=== PATIENT | male | born 1940 | race Caucasian/White ===

== ENCOUNTER 2016-08-18 18:08 | Inpatient (IN) | payer MEDICARE, BC ==
[2016-08-18] MEDS ORDERED: Aspirin Low Dose CHEW TAB* 81 MG PO ONE (18:26)
[2016-08-18 18:44] LABS: Hematocrit 46 % (42-52); Hemoglobin 15.2 g/dl (14.0-18.0); Mean Corpuscular HGB Conc 33 g/dl (31-36); Mean Corpuscular Hemoglobin 30 pg (27-31); Mean Corpuscular Volume 89 fL (80-94); Mean Platelet Volume 9 um3 (7.4-10.4); Red Blood Count 5.16 10^6/ul (4.0-5.4); Red Cell Distribution Width 14 % (10.5-15); White Blood Count 6.7 10^3/ul (3.5-10.8)
--- NOTE | 2016-08-18 18:45 | RAD ---
INDICATION: Chest pain COMPARISON: None TECHNIQUE: An AP portable view obtained at 1840 hours is submitted. FINDINGS: Bones/Soft Tissues: There are no acute bony findings. Cardiomediastinal: The cardiomediastinal silhouette is normal. Lungs: There are no infiltrates. Pleura: There are no pleural effusions. Other: None IMPRESSION: NO ACTIVE DISEASE
[2016-08-18 19:04] LABS: Albumin 4.2 g/dL (3.2-5.2); BUN/Creatinine Ratio 16.2 (8-20); Calcium 9.5 mg/dL (8.6-10.3); EGFR African American 88.8 (>60); Globulin 2.9 g/dL (2-4); Magnesium 2.6 mg/dL (1.9-2.7); Potassium 3.8 mmol/L (3.5-5.0); Total Bilirubin 0.4 mg/dL (0.2-1.0); Total Protein 7.1 g/dL (6.4-8.9)
[2016-08-18 19:09] LABS: Troponin I 0.07 ng/mL (<0.04)
[2016-08-18] MEDS ORDERED: Iohexol 350* (CONTRAST) 500 ML MDV IV ONE (19:09)
[2016-08-18 19:22] LABS: TSH (Thyroid Stimulating Horm) 2.29 mcIU/mL (0.34-5.60)
--- NOTE | 2016-08-18 19:53 | RAD ---
INDICATION: Chest pain. Short of breath. Evaluate for pulmonary embolus. COMPARISON: Chest x-ray August 18, 2016 TECHNIQUE: Axial source images were obtained from the thoracic inlet to the hemidiaphragms following administration of [address] angiographic technique was utilized. Coronal and sagittal reconstructed images were acquired. CHEST FINDINGS: Neck/thyroid: The visualized neck to include the thyroid appear normal. Chest wall: There are no acute abnormalities of the bony thorax or chest wall. There is no supraclavicular, infraclavicular, or axillary lymphadenopathy. Lungs : There are no pulmonary parenchymal masses or infiltrates. The pulmonary interstitium appears normal. There are no endobronchial lesions. Cardiomediastinal structures: There are fourth order and distal acute pulmonary emboli supplying the right lower lobe. No other pulmonary arterial filling defects are identified. The heart is normal in size. There is no pericardial effusion. There is no evidence of aortic aneurysm or dissection. There is no mediastinal or hilar adenopathy. The esophagus appears normal. Pleura : There are no pleural-based masses or effusions. Other: None. IMPRESSION: ACUTE, RIGHT-SIDED PULMONARY EMBOLI. Findings called to emergency department.
[2016-08-18] MEDS ORDERED: Enoxaparin(*) 80 MG/0.8 ML SYR SUBCUT ONE (20:00)
--- NOTE | 2016-08-18 20:36 | ED ---
Shivam Patterson Billy, scribed for Zack Calabrese MD on 08/18/16 at 1822 . HPI Chest Pain - HPI Summary HPI Summary: Patient is a 76 year-old male coming to [facility] presenting with constant left anterior chest pain starting earlier today. He describes burning sensation which was worse with exertion, 5/10 at its worst, 2/10 at this time. Pain radiated to his shoulder and back, but he also states that his left shoulder pain has been chronic. He reports mild nausea without vomiting. Denies any SOB or dizziness. - History of Current Complaint Chief Complaint: EDChestPainROMI Time Seen by Provider: 08/18/16 18:16 Hx Obtained From: Patient Onset/Duration: Started Hours Ago, Still Present Timing: Constant Initial Severity: Moderate Current Severity: Moderate Pain Intensity: 2 Pain Scale Used: 0-10 Numeric Chest Pain Location: Left Anterior Chest Pain Radiates: Yes Chest Pain Radiates To:: Back, Shoulder Character: Burning Aggravating Factor(s): Exertion Alleviating Factor(s): Nothing Associated Signs and Symptoms: Positive: Chest Pain, Nausea. Negative: Shortness of Breath, Vomiting - Allergy/Home Medications Allergies/Adverse Reactions: Allergies Allergy/AdvReac Type Severity Reaction Status Date / Time No Known Allergies Allergy Verified 08/18/16 18:17 PMH/Surg Hx/FS Hx/Imm Hx Endocrine/Hematology History: Denies: Hx Diabetes - pre-diabetes Cardiovascular History: Denies: Hx Hypercholesterolemia, Hx Hypertension Infectious Disease History: No Infectious Disease History: Denies: Traveled Outside the [place] in Last 30 Days - Family History Known Family History: Positive: Cardiac Disease - mother with HI in her 70s - Social History Alcohol Use: None Hx Substance Use: No Substance Use Type: Reports: None Hx Tobacco Use: No Smoking Status (MU): Never Smoked Tobacco Review of Systems Positive: Chest Pain Negative: Shortness Of Breath Positive: Nausea. Negative: Vomiting Positive: Other - chronic left shoulder pain All Other Systems Reviewed And Are Negative: Yes Physical Exam - Summary Physical Exam Summary: VITAL SIGNS: Reviewed. GENERAL: Patient is a well developed and nourished male who is lying comfortable in the stretcher. Patient is not in any acute respiratory distress. HEAD AND FACE: No signs of trauma. No ecchymosis, hematomas or skull depressions. No sinus tenderness. EYES: PERRLA, EOMI x 2, No injected conjunctiva, no nystagmus. EARS: Hearing grossly intact. Ear canals and tympanic membranes are within normal limits. MOUTH: Oropharynx within normal limits. NECK: Supple, trachea is midline, no adenopathy, no JVD, no carotid bruit, no c- spine tenderness, neck with full ROM. CHEST: Symmetric, no tenderness at palpation LUNGS: Clear to auscultation bilaterally. No wheezing or crackles. CVS: Regular rate and rhythm, S1 and S2 present, no murmurs or gallops appreciated. ABDOMEN: Soft, non-tender. No signs of distention. No rebound no guarding, and no masses palpated. Bowel sounds are normal. EXTREMITIES: FROM in all major joints, no edema, no cyanosis or clubbing. NEURO: Alert and oriented x 3. No acute neurological deficits. Speech is normal and follows commands. SKIN: Dry and warm Triage Information Reviewed: Yes Vital Signs On Initial Exam: Initial Vitals Temp Pulse Resp BP Pulse Ox 97.2 F 89 14 160/70 100 08/18/16 18:13 08/18/16 18:13 08/18/16 18:13 08/18/16 18:13 08/18/16 18:13 Vital Signs Reviewed: Yes Diagnostics - Vital Signs Vital Signs Temp Pulse Resp BP Pulse Ox 08/18/16 18:13 97.2 F 89 14 160/70 100 - Laboratory Lab Results: Lab Results 08/18/16 08/18/16 08/18/16 Range/Units 18:50 18:50 18:50 WBC 6.7 (3.5-10.8) 10^3/ul RBC 5.16 (4.0-5.4) 10^6/ul Hgb 15.2 (14.0-18.0) g/dl Hct 46 (42-52) % MCV 89 (80-94) fL MCH 30 (27-31) pg MCHC 33 (31-36) g/dl RDW 14 (10.5-15) % Plt Count 239 (150-450) 10^3/ul MPV 9 (7.4-10.4) um3 Neut % (Auto) 75.5 (38-83) % Lymph % (Auto) 14.1 L (25-47) % [place] % (Auto) 6.9 (1-9) % Eos % (Auto) 2.4 (0-6) % Baso % (Auto) 1.1 (0-2) % Absolute Neuts (auto) 5.0 (1.5-7.7) 10^3/ul Absolute Lymphs (auto) 0.9 L (1.0-4.8) 10^3/ul Absolute Monos (auto) 0.5 (0-0.8) 10^3/ul Absolute Eos (auto) 0.2 (0-0.6) 10^3/ul Absolute Basos (auto) 0.1 (0-0.2) 10^3/ul Absolute Nucleated RBC 0 10^3/ul Nucleated RBC % 0.1 D-Dimer, Quantitative 489 H (Less Than 230) ng/mL Lactic Acid 1.2 (0.5-2.0) mmol/L Result Diagrams: 08/18/16 18:50 08/18/16 18:50 Lab Statement: Any lab studies that have been ordered have been reviewed, and results considered in the medical decision making process. - Radiology CXR Xray Interpretation: No Acute Changes Radiology Interpretation Completed By: Radiologist - CT CTA chest CT Interpretation Completed By: Radiologist - ACUTE, RIGHT-SIDED PULMONARY EMBOLI. - EKG 1815 EKG Interpretation: NSR 83 bpm, no ST elevation, ST depressions in V4-V6. Re-Evaluation - Re-Evaluation First Eval Re-Evaluation Time: 19:23 Change: Unchanged Second Eval Re-Evaluation Time: 19:30 Change: Unchanged Comment: Plan for admission reviewed and discussed. Chest Pain Course/Dx - Course Assessment/Plan: Patient is a 76 year-old male coming to [facility] presenting with constant left anterior chest pain starting earlier today. He describes burning sensation which was worse with exertion, 5/10 at its worst, 2/10 at this time. Pain radiated to his shoulder and back, but he also states that his left shoulder pain has been chronic. He reports mild nausea without vomiting. Denies any SOB or dizziness. Bloodwork WNL except for D-Dimer of 489 and troponin of 0.07. CXR shows no acute pathology. In the ER course, he was given aspirin due to increased troponin. EKG shows NSR [address] depressions in V4-V6. Because of the increased D-Dimer, I decided to order CTA chest which shows right -sided PE. Therefore he was placed on Lovenox. At this point, I discussd the case with Dr. Rucker who will be admitting the patient to his services for further workup and management. He is hemodynamically stable, A&Ox3. - Chest Pain Differential Diagnosis/HQI/PQRI: Acute HI, ACS, Angina, CHF, Chest Wall, GI Disease, Pulmonary Edema, Pulmonary Embolism - Diagnoses Provider Diagnoses: Pulmonary embolism, increased troponin r/o ACS, Chest pain - Provider Notifications Discussed Care Of Patient With: Dr. Rucker (hospitalist) @ 1929: accepts admission. Discharge - Discharge Plan Condition: Stable Disposition: ADMITTED TO [facility] Referrals: Valentino Byrd MD [Primary Care Provider] - The documentation as recorded by the Shivam emmanuel Billy accurately reflects the service I personally performed and the decisions made by me, Zack Calabrese MD.
[2016-08-19] MEDS: Enoxaparin(*) 80 MG/0.8 ML SYR SUBCUT SCH ×4 (00:16→19:30)
[2016-08-19 02:18] LABS: Urine Bilirubin Negative (Negative); Urine Glucose Negative (Negative); Urine Nitrite Negative (Negative)
[2016-08-19 08:40] LABS: Troponin I 0.35 ng/mL (<0.04)
--- NOTE | 2016-08-19 13:15 | HP ---
HISTORY AND PHYSICAL: DATE OF ADMISSION: 08/18/16 CHIEF COMPLAINT: Chest pain. HISTORY OF PRESENT ILLNESS: The patient is a 76-year-old gentleman, who presents to the [facility] with a chief complaint of pain that started yesterday around his entire chest. It is on the left and the right side. He feels a fatigue, as he puts it, in his shoulders. Initially, it did not hurt on exertion, but today, it got worse on exertion. At its worst, it was 5/10 in severity. He did not get short of breath with it. He says when the pain gets worse with exertion he stops, and in a few seconds, it is better again. He denies any recent long plane rides or car rides or trauma. He denies any swelling or pain in his calf. PAST MEDICAL HISTORY: Significant for cellulitis he had 15 years ago, prostate cancer apparently several years ago but then a repeat biopsy showed it was negative and he was never treated, BPH. MEDICATIONS: 1. Vitamin C 250 mg a day. 2. Prostate [id number] medication. 3. Multivitamin. 4. Garlic. ALLERGIES: He has allergy to AVOCADOS, but no medications. FAMILY HISTORY: Mother at 78 and had an WA in her 70s and some form of cancer. Father at 78 of pulmonary embolism. SOCIAL HISTORY: No tobacco, alcohol, or recreational drug use. 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 He is with no children. His , Renae Smith, is his healthcare proxy. REVIEW OF SYSTEMS: A 14-point review of systems is completed with the patient. All pertinent positives and negatives are in the history of present illness, otherwise, negative. PHYSICAL EXAMINATION GENERAL: A pleasant gentleman lying in bed in no acute distress. VITAL SIGNS: Temperature 98.1 degrees, heart rate 82 beats per minute, respiratory rate 16 breaths per minute, pulse ox 97%, blood pressure 150/71. HEENT: Normocephalic, atraumatic. Pupils are equal, round, and reactive to light. Moist mucous membranes. NECK: Supple. No JVD, bruits, palpable thyroid, or lymphadenopathy. LUNGS: Clear to auscultation and percussion bilaterally. HEART: S1, S2 appreciated. Regular rate and rhythm. No murmurs, gallops, or rubs. ABDOMEN: Positive bowel sounds in all 4 quadrants. Soft, nontender, nondistended. No hepatosplenomegaly. EXTREMITIES: No cyanosis, clubbing, or edema. +2 peripheral pulses bilaterally. NEUROLOGIC: Alert and oriented x3, moves all extremities. SKIN: No rashes or abnormalities. DIAGNOSTIC STUDIES/LAB DATA: White count 6.7, hemoglobin 15.2, hematocrit 46, platelets 239. Sodium is 140, potassium 3.8, chloride 106, BUN 17, creatinine 1.05, glucose 107. Troponin 0.07, 0.19, repeated 0.25. D-dimer 49. Urinalysis is unremarkable. CTA of the chest shows acute right sided pulmonary emboli. Chest x-ray shows no active disease. EKG shows normal sinus rhythm at 83 beats per minute, normal axis, no acute ST- T wave changes. ASSESSMENT AND PLAN: 1. Pulmonary embolism. Start the patient on Lovenox subcu. He will consider whether to go on Coumadin or Xarelto, but he is leaning towards Xarelto. The patient currently feels fine and would like to go home as soon as possible. I will get a venous duplex and transthoracic echocardiogram and monitor him on tele overnight. If he feels as well tomorrow, he will be able to go home at that point. 2. Fluids, electrolytes, nutrition. Regular diet. 3. Deep venous thrombosis prophylaxis. He is on Lovenox. 4. The patient is a full code. TIME SPENT: Over 75 minutes were spent on this H and P; more than 40 minutes of which were spent in direct bngq-kc-wajv contact with the patient in evaluation, physical exam, counselling, and coordination of care. CC: Dr. Valentino Byrd* [id number]/[facility] #: [id number] ELEANOR
--- NOTE | 2016-08-19 15:33 | PN ---
Subjective Date of Service: 08/19/16 Interval History: HOSPITALIST PROGRESS NOTE Patient seen and examined at bedside. He feels better today, has not experienced chest pain so far today, but has not exerted himself. Family History: Unchanged from Admission Social History: Unchanged from Admission Past Medical History: Unchanged from Admission Objective Active Medications: Enoxaparin Sodium (Lovenox(*)) 80 mg SUBCUT Q12H KAVEH Last Admin: 08/19/16 08:25 Dose: 80 mg Vital Signs 08/19/16 08/19/16 08:38 11:38 Temperature 98.5 F Pulse Rate 63 Respiratory 12 16 Rate Blood Pressure 137/71 (mmHg) O2 Sat by Pulse 96 Oximetry Oxygen Devices in Use Now: None Appearance: Pleasant gentleman lying in bed in NAD. Eyes: No Scleral Icterus Ears/Nose/Mouth/Throat: Mucous Membranes Moist Neck: Trachea Midline Respiratory: Symmetrical Chest Expansion and Respiratory Effort, Clear to Auscultation Cardiovascular: NL Sounds; No Murmurs; No JVD, RRR Abdominal: NL Sounds; No Tenderness; No Distention Extremities: No Edema Neurological: Alert and Oriented x 3, NL Muscle Strength and Tone Lines/Tubes/Other Access: Clean, Dry and Intact Peripheral IV Nutrition: Taking PO's Result Diagrams: 08/18/16 18:50 08/18/16 18:50 Assess/Plan/Problems-Billing Assessment: Mr. Smith is a 76yo M with PMH of BPH who presented to ED with c/o chest pain, found to have PE. - Patient Problems (1) Pulmonary embolism Comment: - Patient denies any recent surgeries or trips. - Father of PE after a hospital stay, but no other family members with h/o blood clots. - Continue Lovenox for now. Patient will decide between Warfarin or NOAC. - Awaiting echocardiogram and LE doppler. (2) Elevated troponin Comment: - Suspect secondary to increased demand in the setting of PE. - Continue to trend. - His VS are stable, he does not require supplemental O2 - no indication for thrombolytic at this time. (3) DVT prophylaxis Comment: - Lovenox. (4) Full code status Status and Disposition: Inpatient for management of PE.
--- NOTE | 2016-08-19 16:21 | ECHO ---
Patient: ANDREW HAYWOOD [facility] Rec#: [id number] : 1940 Date: 08/19/2016 Age: 76y Height: 182.9 cm / 72.0 in Weight: 82.6 kg / 182.1 lbs Sex: M BSA: 2.1 Room#: 433 Admit Date#: 08/18/2016 Type: Inpatient Referring: Emma Molina MD Reading: Ina Swift MD Dehairing Machine Tender: Nadine Solorzano RN RDCS CC: Valentino Byrd MD Transthoracic Echocardiogram Indication: Pulmonary embolism, elevated troponin levels BP: 126/70 HR: 85 Rhythm: NSR Findings History: Palpitations in the past, PACs seen on Holter monitor per patient Technical Comments: The study is technically limited due to poor acoustic windows. Left Ventricle: The left ventricular chamber size is normal. There is no left ventricular hypertrophy. Global left ventricular wall motion and contractility are within normal limits. There is normal left ventricular systolic function. The estimated ejection fraction is 60-65%. There is no consistent Doppler evidence of clinically significant diastolic dysfunction. Left Atrium: The left atrial chamber size is normal. Right Ventricle: The right ventricle is not well visualized. The right ventricle is mildly dilated. The right ventricular global systolic function is low normal. Right Atrium: The right atrium is not well visualized. Aortic Valve: The aortic valve is trileaflet. There is no evidence of aortic regurgitation. There is no evidence of aortic stenosis. Mitral Valve: The mitral valve leaflets are mildly thickened. There is a trace of mitral regurgitation. There is no evidence of mitral stenosis. Tricuspid Valve: The tricuspid valve structure is not well visualized. There is trace tricuspid regurgitation. Unable to estimate the right ventricular systolic pressure. Pulmonic Valve: The pulmonic valve structure is not well visualized. There is a trace pulmonic regurgitation. Pericardium: There is no significant pericardial effusion. Aorta: There is no dilatation of the ascending aorta. There is no dilatation of the aortic arch. The aortic root is normal in size. Pulmonary Artery: The main pulmonary artery is not well visualized. Venous: The venous system is not well visualized. The inferior vena cava is not visualized. Conclusions Global left ventricular wall motion and contractility are within normal limits, LV appear hyperdynamic. The estimated ejection fraction is 65%. The right ventricle is mildly dilated. The right ventricular systolic function is low normal. There is a trace of mitral regurgitation. There is trace tricuspid regurgitation. Unable to estimate the right ventricular systolic pressure. No prior echo to compare. Measurements Name Value Normal Range RVDdMajor (2D) 4 cm (2.2 - 4.4) RAd ISD 4CH 3.8 cm (3.4 - 4.9) IVSd (2D) 0.9 cm (0.6 - 1) LVPWd (2D) 0.9 cm (0.6 - 1) LVIDd (2D) 4.2 cm (3.6 - 5.4) LVIDs (2D) 2.8 cm - LV FS (2D) 36 % (25 - 45) Aortic Annulus 2.3 cm (1.4 - 2.6) Ao root diameter (2D) 3.3 cm (2.1 - 3.5) Ascending Ao 3.3 cm (2.1 - 3.4) Aortic arch 2.4 cm (1.8 - 3.4) LA dimension (AP) 2D 2.8 cm (2.3 - 3.8) LAd ISD 4CH 4.1 cm (2.9 - 5.3) LA ISD 4CH W 3.9 cm (2.5 - 4.5) Name Value Normal Range MV E-wave Vmax 0.92 m/sec - MV deceleration time 224 msec - MV A-wave Vmax 0.76 m/sec - MV E:A ratio 1.2 ratio - LV septal e' Vmax 0.08 m/sec - LV lateral e' Vmax 0.13 m/sec - LV E:e' septal ratio 11.5 ratio - LV E:e' lateral ratio 7.1 ratio - Name Value Normal Range AV Vmax 1.5 m/sec - LVOT Vmax 1.2 m/sec - LEATHA Vmax 0.93 m/sec - Name Value Normal Range PV Vmax 0.93 m/sec -
--- NOTE | 2016-08-19 20:56 | RAD ---
INDICATION: Pain and swelling. COMPARISON: None TECHNIQUE: Duplex interrogation of the Lowerextremity was performed. FINDINGS: Deep veins: The common femoral, great saphenous, profunda femoris, proximal, mid, and distal deep femoral, popliteal, posterior tibial, and peroneal veins were interrogated. There is deep venous thrombosis in a single posterior tibial and peroneal vein on the right and there is chronic appearing DVT in one of the left peroneal veins. There is otherwise normal compressibility, augmentation, and phasic flow. Superficial veins: There are no findings of superficial thrombophlebitis. Popliteal fossa:There is no evidence of a popliteal cyst. Soft tissues:There are no soft tissue abnormalities. IMPRESSION: ACUTE BELOW THE KNEE DEEP VENOUS THROMBOSIS (TIBIAL INVOLVEMENT).
--- NOTE | 2016-08-19 20:57 | RAD ---
INDICATION: Left flank pain COMPARISON: None TECHNIQUE: Longitudinal and transverse scans of the kidneys were obtained. FINDINGS: Kidneys: The kidneys are normal in size and echogenicity. No renal masses, calculi, or hydronephrosis is seen. The right kidney measures 10.3 x 5.0 x 5.6 cm and the left kidney 9.3 x 5.3 x 4.7 cm. Other: None IMPRESSION: NORMAL EXAMINATION.
[2016-08-20 08:10] LABS: HDL Cholesterol 40.2 mg/dL
[2016-08-20] MEDS: Enoxaparin(*) 80 MG/0.8 ML SYR SUBCUT SCH (08:43)
[2016-08-20 09:05] VITALS: BP 122/61
--- NOTE | 2016-08-21 00:20 | DS ---
DISCHARGE SUMMARY: DATE OF ADMISSION: 08/18/16 DATE OF DISCHARGE: 08/20/16 PRIMARY CARE PROVIDER: Valentino Bryd MD DISCHARGE DIAGNOSES: 1. Pulmonary embolism. 2. Lower extremity deep vein thrombosis. 3. Elevated troponin. 4. Mild right ventricular strain. PAST MEDICAL HISTORY: BPH. MEDICATION LIST: Eliquis 10 mg p.o. b.i.d. for 7 days, then 5 mg p.o. b.i.d. HOSPITAL COURSE: Mr. Smith is a 76-year-old male with a past medical history as stated above that presented to the emergency room with complaints of retrosternal chest pain associated with exertion. Two days prior to this episode, he had 1 episode of right calf pain that he describes as a cramp. The patient was admitted for further workup. His chest x-ray showed no active disease. CTA of the chest showed there are fourth-order in distal acute pulmonary emboli supplying the right lower lobe. No other pulmonary arterial filling defects were identified. His initial troponin was 0.07 and he was initially treated with Lovenox. His troponin continued to trend up and peaked at 0.41. An echocardiogram was performed and it showed global left ventricular wall motion contractility within normal limits. LV appears hyperdynamic. Ejection fraction of 65%. The right ventricle is mildly dilated and the right ventricular systolic function is low normal. There was trace of MR, trace TR, and the estimator printing plate making was unable to estimate the right ventricular systolic pressure. Lower extremity Doppler showed DVT in a single posterior tibial and peroneal vein on the right and there is a chronic appearing DVT in 1 of the left peroneal veins. I had multiple long conversations with the patient and his regarding his diagnosis and test results. We also talked about the options for anticoagulation including Lovenox, warfarin, Xarelto, and Eliquis. The patient works with [employer] and was very interested in studies and risks, benefits, and alternatives of all medications. After we reviewed them at length, the patient elected to be treated with Eliquis. He had significant improvement of his symptoms and was felt to be stable for discharge at this time. His chest pain has resolved. He requires no supplemental oxygen. His troponin is trending down. On admission, the patient also had complaints of left flank pain and a renal ultrasound was performed and it was a normal examination. The patient's father of a pulmonary embolism and considering that he has chronic DVT of unknown duration. Now this episode of right lower extremity DVT and PE with mild right ventricular strain, I am inclined to indicate lifelong therapy. The patient is open to the idea, but he would like to discuss with his primary care provider if maybe just treating for 6 months would be indicated and then to have close followup. I believe he also needs a repeat echocardiogram in 6 to 8 weeks to reassess his right ventricle function but overall I believe the patient carries a good prognosis for recovery. The patient also had complaints of what he describes as "shoulder fatigue." He says for years he has had this episodes where he feels like he exercised his shoulders too much and this episode actually started in the similar manner, but then was followed by chest pain and that is what prompted his ED visit. With the way he describes the symptoms, I question if he may have mild case of polymyalgia rheumatica, but I will defer the workup to his primary care provider. I did call Dr. Byrd's office today but he is on vacation at this time. I did relay the information about the admission to his nurse (Flaca) especially the fact the patient will need a followup echocardiogram in 6 to 8 weeks. The patient was felt to be medically stable for discharge at this time. PHYSICAL EXAMINATION: General: The patient is a pleasant, elderly male, who is sitting up in bed, in no acute distress. Vital Signs: Temperature 98.3, heart rate is 69, respiratory rate 16, oxygen saturation 98% on room air, and blood pressure 122/61. Chest: Breath sounds bilaterally with no added sounds. CVS: Normal S1, S2. Regular rate and rhythm. Abdomen: Soft. Bowel sounds presents. Extremities: No edema. No calf tenderness. Neuro: He is alert, awake, and oriented x3. Able to move all 4 extremities. DIET: Regular diet. ACTIVITIES: As tolerated. DISPOSITION: To home. STATUS WHILE IN THE HOSPITAL: Inpatient. If you need more information, please feel free to call me at or please obtain the full medical records. TIME SPENT: Approximately 45 minutes was spent to complete this discharge. CC: Dr. Byrd* [id number]/[facility] #: [id number] MTDD
== END 2016-08-20 12:15 | disposition home or self-care (01) | DRG 176 ==
LOC: ED 18:08 → MEDTELE 22:05
PROVIDERS: ADMIT Internal Medicine; ATTEND Internal Medicine
DX: I26.99 Other pulmonary embolism without acute cor pulmonale (principal); I82.442 Acute embolism and thrombosis of left tibial vein; I82.5Z2 Chronic embolism and thrombosis of unspecified deep veins of left distal lower extremity; R74.8 Abnormal levels of other serum enzymes; N40.0 Benign prostatic hyperplasia without lower urinary tract symptoms; Z85.46 Personal history of malignant neoplasm of prostate; Z79.899 Other long term (current) drug therapy; Z91.018 Allergy to other foods; Z82.49 Family history of ischemic heart disease and other diseases of the circulatory system; Z80.9 Family history of malignant neoplasm, unspecified
CPT/HCPCS: 36415; 71010; 71275; 76775; 80053; 80061; 81003; 82550; 82553; 82947; 83605; 83735; 83874; 83880; 84443; 84484; 85025; 85379; 93005; 93306; 93970; A9270-GY; J1650; Q9967

== ENCOUNTER 2016-12-23 20:12 | Emergency (ER) | payer MEDICARE, BC ==
[2016-12-23 20:52] LABS: Hematocrit 43 % (42-52); Hemoglobin 14.3 g/dl (14.0-18.0); Mean Corpuscular HGB Conc 33 g/dl (31-36); Mean Corpuscular Hemoglobin 30 pg (27-31); Mean Corpuscular Volume 89 fL (80-94); Mean Platelet Volume 9 um3 (7.4-10.4); Red Blood Count 4.81 10^6/ul (4.0-5.4); Red Cell Distribution Width 13 % (10.5-15); White Blood Count 9.2 10^3/ul (3.5-10.8)
[2016-12-23 20:59] VITALS: BP 150/82
[2016-12-23 21:06] LABS: Albumin 3.8 g/dL (3.2-5.2); BUN/Creatinine Ratio 17.8 (8-20); C Reactive Protein 68.26 mg/L (< 5.00); Calcium 9.1 mg/dL (8.6-10.3); EGFR African American 92.9 (>60); EGFR Non-African American 72.2 (>60); Globulin 3.1 g/dL (2-4); Potassium 4.1 mmol/L (3.5-5.0); Total Bilirubin 0.6 mg/dL (0.2-1.0); Total Protein 6.9 g/dL (6.4-8.9)
--- NOTE | 2016-12-23 21:07 | ED ---
Lower Extremity - HPI Summary HPI Summary: Patient presents with continued and what he feels is increased redness on his right inner calf. He first noticed a red dot on his left 2 days ago - History of Current Complaint Chief Complaint: EDRashSkinAbscess Stated Complaint: SKIN INFECTION SPREADING Time Seen by Provider: 12/23/16 20:22 Hx Obtained From: Patient Mechanism Of Injury: Unknown Onset of Pain: Days Onset/Duration: Worse Since - yesterday Severity Initially: Mild Severity Currently: Moderate Timing: Constant Location: Is Discrete @ - right calf Character Of Pain: Aching Aggravating Factor(s): Nothing, Other Alleviating Factor(s): Rest Able to Bear Weight: Yes - Allergies/Home Medications Allergies/Adverse Reactions: Allergies Allergy/AdvReac Type Severity Reaction Status Date / Time Avocado Allergy See Comment Verified 08/18/16 22:58 PMH/Surg Hx/FS Hx/Imm Hx Endocrine/Hematology History: Denies: Hx Diabetes - pre-diabetes Cardiovascular History: Denies: Hx Hypercholesterolemia, Hx Hypertension History: Reports: Hx Benign Prostatic Hyperplasia Sensory History: Reports: Hx Contacts or Glasses Opthamlomology History: Reports: Hx Contacts or Glasses - Surgical History Surgery Procedure, Year, and Place: APPENDECTOMY. TONSILLECTOMY. biospy of prostate Infectious Disease History: No Infectious Disease History: Denies: Traveled Outside the [place] in Last 30 Days - Family History Known Family History: Positive: Cardiac Disease - mother with CA in her 70s - Social History Occupation: Retired Lives: Alone Alcohol Use: None Hx Substance Use: No Substance Use Type: Reports: None Hx Tobacco Use: No Smoking Status (MU): Never Smoked Tobacco Review of Systems Negative: Fever, Chills Negative: Decreased ROM, Edema Positive: Other - erythema Negative: Weakness, Paresthesia, Numbness All Other Systems Reviewed And Are Negative: Yes Physical Exam Triage Information Reviewed: Yes Vital Signs On Initial Exam: Initial Vitals Temp Pulse Resp BP Pulse Ox 99.2 F 106 20 169/75 100 12/23/16 20:15 12/23/16 20:15 12/23/16 20:15 12/23/16 20:15 12/23/16 20:15 Vital Signs Reviewed: Yes Appearance: Positive: Well-Appearing, No Pain Distress, Well-Nourished Skin: Positive: Warm, Skin Color Reflects Adequate Perfusion, Dry, Soft, Erythema @ - 5cm area of erythema on medial mid marcus that has progressed 1-2 cm outside of demarcation from yesterday. Head/Face: Positive: Normal Head/Face Inspection Eyes: Positive: EOMI, ELZBIETA, Conjunctiva Clear ENT: Positive: Hearing grossly normal Respiratory/Lung Sounds: Positive: Breath Sounds Present Cardiovascular: Positive: RRR Musculoskeletal: Positive: Strength/ROM Intact Neurological: Positive: Sensory/Motor Intact, Alert, Oriented to Person Place, Time, NV Bundle Intact Distally, Normal Gait Psychiatric: Positive: Affect/Mood Appropriate AVPU Assessment: Alert - [place] Coma Scale Coma Scale Total: 15 Diagnostics - Vital Signs Vital Signs Temp Pulse Resp BP Pulse Ox 12/23/16 20:59 93 95 12/23/16 20:38 99 95 12/23/16 20:36 150/82 12/23/16 20:15 99.2 F 106 20 169/75 100 - Laboratory Lab Results: Lab Results 12/23/16 Range/Units 20:45 WBC 9.2 (3.5-10.8) 10^3/ul RBC 4.81 (4.0-5.4) 10^6/ul Hgb 14.3 (14.0-18.0) g/dl Hct 43 (42-52) % MCV 89 (80-94) fL MCH 30 (27-31) pg MCHC 33 (31-36) g/dl RDW 13 (10.5-15) % Plt Count 205 (150-450) 10^3/ul MPV 9 (7.4-10.4) um3 Neut % (Auto) 76.6 (38-83) % Lymph % (Auto) 11.7 L (25-47) % [place] % (Auto) 10.1 H (1-9) % Eos % (Auto) 1.1 (0-6) % Baso % (Auto) 0.5 (0-2) % Absolute Neuts (auto) 7.1 (1.5-7.7) 10^3/ul Absolute Lymphs (auto) 1.1 (1.0-4.8) 10^3/ul Absolute Monos (auto) 0.9 H (0-0.8) 10^3/ul Absolute Eos (auto) 0.1 (0-0.6) 10^3/ul Absolute Basos (auto) 0 (0-0.2) 10^3/ul Absolute Nucleated RBC 0 10^3/ul Nucleated RBC % 0 Result Diagrams: 12/23/16 20:45 Lab Statement: Any lab studies that have been ordered have been reviewed, and results considered in the medical decision making process. Lower Extremity Course/Dx - Diagnoses Differential Diagnosis/HQI/PQRI: Positive: Arthritis, Bursitis, Cellulitis, Contusion, Osteomyelitis, Sprain, Strain Provider Diagnoses: Cellulitis Discharge - Discharge Plan Condition: Stable Disposition: HOME Prescriptions: Clindamycin Cap(NF) [Cleocin 300 mg Cap(NF)] 300 mg PO QID #39 cap Patient Education Materials: Cellulitis (ED) Referrals: Valentino Byrd MD [Primary Care Provider] - Additional Instructions: Please stop taking the Doxycycline and begin using Clindamycin. Follow-up with your primary care provider in 1-2 days for re-evaluation. Return to the emergency department if symptoms worsen.
[2016-12-23] MEDS ORDERED: Clindamycin CAP* 150 MG PO ONE ×2 (21:18→22:00)
[2016-12-23] MEDS ORDERED: Clindamycin CAP* 150 MG ONE (21:51)
== END 2016-12-23 22:13 | disposition home or self-care (01) ==
LOC: ED 20:12
DX: L03.115 Cellulitis of right lower limb (principal); N40.0 Benign prostatic hyperplasia without lower urinary tract symptoms
CPT/HCPCS: 36415; 80053; 85025; 86140; 99282; A9270-GY

== ENCOUNTER 2017-08-28 07:58 | Day surgery (SDC) | payer MEDICARE, BC ==
[~2017-08-28 07:58] MED LIST: Acetaminophen TAB* 325 MG PO PRN; Buffered Lidocaine 0.9% SYRIN* 5 ML/SYR SYRINGE INTRADERM ONE; Cyclopentolate 1% OPTH.SOL* 2 ML BTL ONE; Ketorolac 0.5% OPHTH (NF) 0.5 % 5 ML BTL ONE; Lidocaine 1% MPF* 2 ML VIAL ONE; Lidocaine 2% EPI 1:200000 MPF* 20 ML VIAL ONE; Midazolam* 1 MG/ML 2 ML VIAL (2 MG) ONE; Neomycin/Polymy/Dex OPTH.SUSP* MAXITROL 0.1% 5 ML ONE; Phenylephrine 2.5% OPTH.SOL* 2 ML BTL ONE; Povidone Iodine 5% OPTH* 30 ML BTL ONE; Proparacaine 0.5% OPHTH.SOL* 15 ML BTL ONE; Trypan Blue 0.06% SOL* 0.5 ML BTL ONE; acetaZOLAMIDE TAB* 250 MG ONE
[2017-08-28 10:33] VITALS: BP 152/63
--- NOTE | 2017-08-28 13:03 | OP ---
DATE OF OPERATION: 08/28/2017 - [facility] DATE OF : 1940. SURGEON: Valentino Low M.D. PREOPERATIVE DIAGNOSIS: Cataract left eye. POSTOPERATIVE DIAGNOSIS: Cataract left eye. OPERATIVE PROCEDURE: Extracapsular cataract extraction with intraocular lens implant left eye. DESCRIPTION OF PROCEDURE: The patient was brought to the operating room after being given 1/2% Alcaine with epinephrine drops in the preoperative area. The eye was prepped and draped in the usual sterile fashion. Sterile drape and eyelid speculum were placed. Again, topical 1/2% Alcaine with epinephrine was given. A paracentesis incision was made at the 3 o'clock position with the No.75 blade. Clear cornea incision 2.2 x 2.2-mm was created at the 6 o'clock position starting at the anterior limbus using the 2.2-mm keratome. The anterior chamber was irrigated with 0.4 mL of 1% non-preservative intracameral lidocaine and filled with DisCoVisc. A capsulorrhexis was completed using the cystotome and the Utrata forceps. Hydrodissection was performed with balanced salt solution. The lens nucleus was removed with the Phacoemulsification handpiece without incident. Cortex was removed with the irrigation-aspiration handpiece. The capsular bag was re-inflated using DisCoVisc and an [id number] implant was inserted with the shooter. VisionBlue was used to stain the anterior capsule prior to capsulorrhexis. The irrigation- aspiration handpiece was used to remove all residual DisCoVisc. The eye was refilled with balanced salt solution and the wound checked and found to be watertight. Topical Maxitrol drops were given. Indication for complex cataract surgery: White cataract requiring capsular stain. [id number]/[facility] #: [id number] MTDD
== END 2017-08-28 10:21 | disposition home or self-care (01) ==
LOC: OREAST 07:58
PROVIDERS: ATTEND Specialist
DX: H25.812 Combined forms of age-related cataract, left eye (principal); Z86.718 Personal history of other venous thrombosis and embolism; Z79.01 Long term (current) use of anticoagulants; I26.99 Other pulmonary embolism without acute cor pulmonale; I49.1 Atrial premature depolarization
CPT/HCPCS: A9270-GY; J2250; V2632

== ENCOUNTER 2018-04-02 10:40 | Day surgery (SDC) | payer MEDICARE, BC ==
[~2018-04-02 10:40] MED LIST changes: -Lidocaine 1% MPF* 2 ML VIAL ONE; +Lidocaine 1%* 5 ML VIAL ONE; -Lidocaine 2% EPI 1:200000 MPF* 20 ML VIAL ONE; +Lidocaine 2% EPI 1:200000 MPF*10-20 ML VIAL ONE; -Midazolam* 1 MG/ML 2 ML VIAL (2 MG) ONE; -Trypan Blue 0.06% SOL* 0.5 ML BTL ONE
[2018-04-02 14:07] VITALS: BP 135/78
--- NOTE | 2018-04-02 15:22 | OP ---
DATE OF OPERATION: 04/02/2018 - [facility] DATE OF : 1940. SURGEON: Valentino Low M.D. PREOPERATIVE DIAGNOSIS: Cataract right eye. POSTOPERATIVE DIAGNOSIS: Cataract right eye. OPERATIVE PROCEDURE: Extracapsular cataract extraction with intraocular lens implant right eye. DESCRIPTION OF PROCEDURE: The patient was brought to the operating room after being given 1/2% Alcaine with epinephrine drops in the preoperative area. The eye was prepped and draped in the usual sterile fashion. Sterile drape and eyelid speculum were placed. Again, topical 1/2% Alcaine with epinephrine was given. A paracentesis incision was made at the 9 o'clock position with the No.75 blade. Clear cornea incision 2.2 x 2.2-mm was created at the 12 o'clock position starting at the anterior limbus using the 2.2-mm keratome. The anterior chamber was irrigated with 0.4 mL of 1% non-preservative intracameral lidocaine and filled with DisCoVisc. A capsulorrhexis was completed using the cystotome and the Utrata forceps. Hydrodissection was performed with balanced salt solution. The lens nucleus was removed with the Phacoemulsification handpiece without incident. Cortex was removed with the irrigation-aspiration handpiece. The capsular bag was re-inflated using DisCoVisc and an [id number] implant was inserted with the shooter. The irrigation-aspiration handpiece was used to remove all residual DisCoVisc. The eye was refilled with balanced salt solution and the wound checked and found to be watertight. Topical Maxitrol drops were given. [id number]/[facility] #: [id number] [facility]
== END 2018-04-02 13:46 | disposition home or self-care (01) ==
LOC: OREAST 10:40
PROVIDERS: ATTEND Specialist
DX: H25.811 Combined forms of age-related cataract, right eye (principal); Z86.718 Personal history of other venous thrombosis and embolism; Z79.01 Long term (current) use of anticoagulants
CPT/HCPCS: A9270-GY; V2632

== ENCOUNTER 2019-02-11 14:19 | Inpatient (IN) | payer MEDICARE, BC ==
[2019-02-11 14:38] LABS: ABS Lymphocytes 0.7 10^3/ul (1.0-4.8); ABS Monocytes 0.3 10^3/ul (0-0.8); Eosinophil % 0.6 %; Hematocrit 44 % (42-52); Hemoglobin 14.6 g/dL (14.0-18.0); Lymphocyte % 13.6 %; Mean Corpuscular HGB Conc 33 g/dL (31-36); Mean Corpuscular Hemoglobin 30 pg (27-31); Mean Corpuscular Volume 90 fL (80-94); Mean Platelet Volume 8.4 fL (7.4-10.4); Nucleated Red Blood Cells % 0.1; Platelet Count 226 10^3/uL (150-450); Red Cell Distribution Width 14 % (10-15); White Blood Count 5.1 10^3/uL (3.5-10.8)
[2019-02-11 14:44] LABS: INR 1.15 (0.82-1.09)
--- NOTE | 2019-02-11 14:47 | ED ---
Shortness of Breath - HPI Summary HPI Summary: A 78 y/o male presents to [facility] with a chief complaint of SOB. He says that he has been having SOB since his pulmonary embolism 2.5 years ago, but for the last month it has worsened. At triage he rated his pain as a 0/10 in severity. He had a nuclear stress test done and was referred to the ED because Dr. Cardenas called his PCP, Dr. Byrd, and Dr. Byrd called the patient. He claims that he has a FHx of GA at 67 y/o. He says that he had CP and SOB today during the stress test. Exertion aggravates his pain. He says that he has been doing hour long walks with his dog. - History of Current Complaint Chief Complaint: EDShortnessOfBreath Hx Obtained From: Patient Onset/Duration: Gradual Onset, Lasting Weeks, Still Present Timing: Constant Current Severity: Mild Dyspnea At: Exertion Aggravating Factors: Other - exertion Alleviating Factors: Nothing Associated Signs & Symptoms: Chest Pain Unrelated to Cough - Allergy/Home Medications Allergies/Adverse Reactions: Allergies Allergy/AdvReac Type Severity Reaction Status Date / Time No Known Drug Allergies Allergy See Comment Verified 02/11/19 18:48 avocado AdvReac Severe See Comment Verified 02/11/19 14:27 PMH/Surg Hx/FS Hx/Imm Hx Endocrine/Hematology History: Denies: Hx Bone Marrow Disease, Hx Diabetes, Hx Sickle Cell Disease, Hx Anemia Cardiovascular History: Reports: Hx Angina Denies: Hx Coronary Artery Disease, Hx Hypercholesterolemia, Hx Hypertension , Hx Myocardial Infarction, Hx Pacemaker/ICD, Hx Valvular Heart Disease Respiratory History: Reports: Hx Pulmonary Embolism - 08/2016 from blood clot in leg Denies: Hx Asthma, Hx Chronic Obstructive Pulmonary Disease (COPD) - hx PE 2016 History: Reports: Hx Benign Prostatic Hyperplasia, Other Problems/ Disorders - hx of prostate biopsy 11/10, enlarged prostate Denies: Hx Chronic Renal Failure, Hx Renal Disease Sensory History: Reports: Hx Cataracts - right eye, Hx Contacts or Glasses - reading glasses Denies: Hx Hearing Aid Opthamlomology History: Reports: Hx Cataracts - right eye, Hx Contacts or Glasses - reading glasses Neurological History: Reports: Hx Migraine - occasional ocular migraine- appox 3 x per year - Surgical History Surgery Procedure, Year, and Place: TONSILLECTOMY 1952 [facility]. APPENDECTOMY 1970 [place], [place]. BIOPSY OF PROSTATE 2007 [facility]. CATARACT LEFT EYE Hx Anesthesia Reactions: No Infectious Disease History: No Infectious Disease History: Denies: Traveled Outside the US in Last 30 Days - Family History Known Family History: Positive: Cardiac Disease - mother with GA in her 70s - Social History Alcohol Use: None Hx Substance Use: No Substance Use Type: Reports: None Hx Tobacco Use: No Smoking Status (MU): Never Smoked Tobacco Have You Smoked in the Last Year: No Review of Systems Negative: Fever, Chills Negative: Erythema Negative: Sore Throat Positive: Chest Pain Positive: Shortness Of Breath. Negative: Cough Negative: Abdominal Pain, Vomiting, Nausea Negative: dysuria, hematuria Negative: Myalgia, Edema Negative: Rash Neurological: Negative - dizziness All Other Systems Reviewed And Are Negative: Yes Physical Exam - Summary Physical Exam Summary: Constitutional: Well-developed, Well-nourished, Alert. (-) Distressed Skin: Warm, Dry HENT: Normocephalic; Atraumatic Eyes: Conjunctiva normal Neck: Musculoskeletal ROM normal neck. (-) JVD, (-) Stridor, (-) Tracheal deviation Cardio: Rhythm regular, rate normal, Heart sounds normal; Intact distal pulses; The pedal pulses are 2+ and symmetric. Radial pulses are 2+ and symmetric. (-) Murmur Pulmonary/Chest wall: Effort normal. (-) Respiratory distress, (-) Wheezes, (-) Rales Abd: Soft, (-) tenderness, (-) Distension, (-) Guarding, (-) Rebound Musculoskeletal: (-) Edema Lymph: (-) Cervical adenopathy Neuro: Alert, Oriented x3 Psych: Mood and affect Normal Triage Information Reviewed: Yes Vital Signs On Initial Exam: Initial Vitals Temp Pulse Resp BP Pulse Ox 98.7 F 89 18 154/82 98 02/11/19 14:25 02/11/19 14:25 02/11/19 14:25 02/11/19 14:25 02/11/19 14:25 Vital Signs Reviewed: Yes Diagnostics - Vital Signs Vital Signs Temp Pulse Resp BP Pulse Ox 02/11/19 14:25 98.7 F 89 18 154/82 98 - Laboratory Lab Results: Lab Results 02/11/19 Range/Units 14:31 WBC 5.1 (3.5-10.8) 10^3/uL RBC 4.90 (4.18-5.48) 10^6 /uL Hgb 14.6 (14.0-18.0) g/dL Hct 44 (42-52) % MCV 90 (80-94) fL MCH 30 (27-31) pg MCHC 33 (31-36) g/dL RDW 14 (10-15) % Plt Count 226 (150-450) 10^3/uL MPV 8.4 (7.4-10.4) fL Neut % (Auto) 78.9 % Lymph % (Auto) 13.6 % [place] % (Auto) 6.4 % Eos % (Auto) 0.6 % Baso % (Auto) 0.5 % Absolute Neuts (auto) 4.0 (1.5-7.7) 10^3/ul Absolute Lymphs (auto) 0.7 L (1.0-4.8) 10^3/ul Absolute Monos (auto) 0.3 (0-0.8) 10^3/ul Absolute Eos (auto) 0.0 (0-0.6) 10^3/ul Absolute Basos (auto) 0.0 (0-0.2) 10^3/ul Absolute Nucleated RBC 0.0 10^3/ul Nucleated RBC % 0.1 Result Diagrams: 19 14:31 19 20:18 Lab Statement: Any lab studies that have been ordered have been reviewed, and results considered in the medical decision making process. - EKG 14:25 Cardiac Rate: NL - 86 bpm EKG Rhythm: Sinus Rhythm Summary of EKG Findings: EKG at 14:25 showed normal sinus rhythm at 86 bpm, no STEMI. Course/Dx - Course Course Of Treatment: A 78 y/o male presents to [facility] with a chief complaint of SOB. He says that he has been having SOB since his pulmonary embolism 2.5 years ago, but for the last month it has worsened. At triage he rated his pain as a 0/ 10 in severity. He had a nuclear stress test done and was referred to the ED because Dr. Cardenas called his PCP, Dr. Samuels, and Dr. Samuels called the patient. He claims that he has a FHx of GA at 67 y/o. He says that he had CP and SOB today during the stress test. Exertion aggravates his pain. He says that he has been doing hour long walks with his dog. The physical exam was unremarkable. EKG at 14:25 showed normal sinus rhythm at 86 bpm, no STEMI. Discussed case with Dr. Byrd, who recommended observation or admission to obtain cardiac catheter tomorrow. Discussed case with Dr. Ramirez, hospitalist, who accepted the patient for admission. The patient is agreeable with this plan. - Diagnoses Provider Diagnoses: Abnormal stress test, Stable angina - Physician Notifications Discussed Care of Patient With: Frederic Levine Time Discussed With Above Provider: 14:55 Instructed by Provider To: Other - is aware of the patient, will proceed with cardiac consult. angina seems to be stable, there seems to be no change in symptomolgy. Discharge - Sign-Out/Discharge Documenting (check all that apply): Patient Departure - admit All imaging exams completed and their final reports reviewed: Yes Patient Received Moderate/Deep Sedation with Procedure: No - Discharge Plan Condition: Fair Disposition: ADMITTED TO [facility] - Attestation Statements Document Initiated by Scribe: Yes Documenting Scribe: Eddy Eubanks Provider For Whom Scribe is Documenting (Include Credential): Raymundo Shaver MD Scribe Attestation: I, Eddy Eubanks, scribed for Raymundo Shaver MD on 02/11/19 at 2138. Status of Scribe Document: Ready Consult Consult: At 17:[address] Byrd, who recommended observation or admission to obtain cardiac catheter tomorrow. At 17:[address] Ramirez, hospitalist, who accepted the patient for admission.
[2019-02-11 15:06] LABS: Albumin 4.1 g/dL (3.2-5.2); Albumin/Globulin Ratio 1.5 (1-3); BUN/Creatinine Ratio 17.5 (8-20); Calcium 9.4 mg/dL (8.6-10.3); EGFR African American 91.1 (>60); EGFR Non-African American 75.2 (>60); Globulin 2.7 g/dL (2-4); Total Bilirubin 0.7 mg/dL (0.2-1.0); Total Protein 6.8 g/dL (6.4-8.9); Troponin I 0.02 ng/mL (<0.04)
[2019-02-11] MEDS ORDERED: Acetaminophen TAB* 325 MG PO PRN (18:29)
[2019-02-11] MEDS ORDERED: Heparin DRIP 25,000 UNITS(*) 25,000 UNITS/500 ML BAG IV SCH (18:30)
[2019-02-11] MEDS ORDERED: Heparin VIAL(*) 5000 UNITS/ML VIAL (FIVE THOUSAND) IV PRN (18:50)
--- NOTE | 2019-02-11 20:08 | HP ---
CC: Dr. Valentino Byrd; Dr. Cherri Cardenas * HISTORY AND PHYSICAL: DATE OF ADMISSION: 02/11/19 PRIMARY CARE PROVIDER: Dr. Valentino Byrd. BABY REGISTRY SALES CONSULTANT: Dr. Cherri Cardenas. ATTENDING PHYSICIAN: Dr. Emma Lundy * (dictated by Mildred Garcia NP). CHIEF COMPLAINT: Positive stress test. HISTORY OF PRESENT ILLNESS: Mr. 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 The patient had a PE back in 2017 and since that time has had some shortness of breath with exertion, though notes that his shortness of breath with exertion has increased significantly in the past 5 to 6 weeks. He does typically walk his dog an hour a day and notes that now he has to stop multiple times while walking in order to catch his breath. He has no significant pain, just some discomfort related to the shortness of breath. He recently saw his primary care provider because of this and was sent for an outpatient stress test. The patient had an exercise nuclear cardiac stress test today. I will note that he was noted to have some chest pain and shortness of breath during the stress test. The results of the stress test read as "reversible hypoperfusion of the distal anterior wall extending to the apex consistent with an area of ischemia. Intermediate risk." For this reason, he was referred to the emergency room. In the emergency room, the patient is asymptomatic. He offers no complaints. He had lab work, which was unremarkable. He has had 2 negative troponins. INR is very slightly elevated at 1.15. Vitals have been stable. At this point, the patient is agreeable to coming into the hospital and the hospitalist service was asked to evaluate for admission. PAST MEDICAL HISTORY: 1. Pulmonary embolism, unprovoked, in 2017. PAST SURGICAL HISTORY: 1. Tonsillectomy and adenoidectomy. 2. Appendectomy. HOME MEDICATIONS: 1. Eliquis 5 mg p.o. b.i.d. 2. Ascorbic acid 250 mg p.o. daily. 3. Prostate 2.4 supplement 1 cap p.o. b.i.d. 4. Lactobacillus 1 cap p.o. every other day. 5. Multivitamin 1 tab p.o. daily. ALLERGIES: No known drug allergies. FAMILY HISTORY: The patient's father had a history of PE. His mother had an AR at 62 and also had thymus cancer. He had a brother with salivary gland cancer. SOCIAL HISTORY: The patient denies any tobacco, alcohol, or recreational drug use. He lives at home with his Renae, who will be his surrogate decision maker in the event he is unable to make his own decisions. REVIEW OF SYSTEMS: An 11-point review of systems was performed and all the pertinent positive and negative findings are in the HPI. All other systems are negative. PHYSICAL EXAMINATION GENERAL: Mr. Smith is a well-developed, well-nourished white male, sitting in bed, in no acute distress. He appears his stated age. VITAL SIGNS: Temp 98.7, heart rate 67, respiratory rate 14, oxygen saturation 97 % on room air, blood pressure 128/67. HEENT: Head is atraumatic, normocephalic. Visual baird are grossly intact. Pupils are equal, round, and reactive to light and accommodation. Extraocular movements intact. Hearing is grossly intact. Oral mucous membranes are moist and without lesions. NECK: Thyroid not palpable. Trachea midline. No lymphadenopathy. RESPIRATORY: Symmetrical chest expansion. No chest wall deformities. Lungs clear to auscultation throughout. No rhonchi, wheezes, or rales. CARDIOVASCULAR: Regular rate and rhythm. S1, S2 present. No murmurs, rubs, or gallops. No JVD. ABDOMEN: Soft, nontender to palpation. Bowel sounds normoactive throughout. EXTREMITIES: Skin warm and smooth bilaterally. No edema. NEURO: Awake, alert, and oriented x4. Cranial nerves II through XII grossly intact. Moves all extremities. DIAGNOSTIC STUDIES/LAB DATA: WBC 5.1, RBC 4.9, hemoglobin 14.6, hematocrit 44 , platelets 226,000. INR 1.15. Sodium 142, potassium 4.0, chloride 110, carbon dioxide 25, BUN 17, creatinine 0.97, glucose 115. First troponin 0.02, second troponin 0.03. EKG shows normal sinus rhythm with a rate of 64, QTc 403, inverted T-waves in III. ASSESSMENT AND PLAN: Mr. Smith is a 78-year-old male with past medical history of unprovoked pulmonary embolism, who presented to the emergency room today after he was noted to have a positive outpatient cardiac stress test. He will be admitted observation for: 1. Positive stress test. The patient does admit to worsening shortness of breath on exertion recently, most notably in the last 5 to 6 weeks. This sounds to be anginal equivalent. At this point, he is pain free. Again, he did have an outpatient stress test today, which showed reversible hypoperfusion of the distal anterior wall extending to the apex and was sent by Dr. Cardenas because of concern for these findings. The patient is agreeable to staying for likely cardiac catheterization tomorrow. I was in touch with Dr. Levine, who is aware of the patient's case. He requested that the patient be placed on a heparin drip and advised that he will see the patient tomorrow morning. He did note that if he does cath the patient, it would not be until late morning, so the patient could have a regular breakfast. I will repeat an EKG in the morning and he will have a third troponin at 8 p.m. 2. History of pulmonary embolism. This was unprovoked in 2017 and the patient is on lifelong anticoagulation with Eliquis. His last dose of Eliquis was at 2: 15 a.m. this morning. I will note that the patient reports he typically takes this medication at 2:00 and 2:00. We will hold the Eliquis at this point as he will be on a heparin drip. 3. FEN: The patient does not require any fluid resuscitation or electrolyte repletion at this time. Diet will be heart healthy. 4. Code status: The patient will be a full code. 5. DVT prophylaxis: According to the DVT Risk Assessment, the patient scores a 6, putting him at highest risk. Again, he will be on a heparin drip. TIME SPENT: Approximately 50 minutes were spent on this admission, greater than half of that time spent [id number] with the patient obtaining my history , performing my physical exam, and reviewing the plan of care. This case has been discussed with my attending, Dr. Lundy, who is in agreement with the plan of care. MILDRED GARCIA, BEACH EXPERT [id number]/[facility] #: [id number] [place]
[2019-02-11 21:00] LABS: EGFR African American 103.2 (>60); EGFR Non-African American 85.3 (>60)
[2019-02-12 05:39] LABS: ABS Eosinophils 0.1 10^3/ul (0-0.6); ABS Lymphocytes 0.9 10^3/ul (1.0-4.8); ABS Monocytes 0.5 10^3/ul (0-0.8); ABS Neutrophils 3.3 10^3/ul (1.5-7.7); Eosinophil % 2.5 %; Hematocrit 42 % (42-52); Hemoglobin 14.2 g/dL (14.0-18.0); Lymphocyte % 18.7 %; Mean Corpuscular HGB Conc 34 g/dL (31-36); Mean Corpuscular Hemoglobin 30 pg (27-31); Mean Corpuscular Volume 90 fL (80-94); Mean Platelet Volume 8.5 fL (7.4-10.4); Platelet Count 214 10^3/uL (150-450); Red Cell Distribution Width 14 % (10-15); White Blood Count 4.9 10^3/uL (3.5-10.8)
[2019-02-12 05:47] LABS: Activated Partial Thrombo Time 64.7 seconds (26.0-38.0); INR 1.15 (0.82-1.09)
[2019-02-12 05:54] LABS: BUN/Creatinine Ratio 15.6 (8-20); EGFR African American 92.1 (>60); EGFR Non-African American 76.2 (>60); Potassium 4.6 mmol/L (3.5-5.0)
[2019-02-12 09:31] LABS: HDL Cholesterol 39.2 mg/dL
[2019-02-12] MEDS ORDERED: Aspirin 81 mg CHEW TAB* 81 MG TAB.CHEW PO ONE (11:25)
[2019-02-12] MEDS ORDERED: NS 0.9% 1000 ML** 1,000 ML IV SCH ×2 (11:30→16:00)
[2019-02-12] MEDS ORDERED: Atorvastatin* 80 MG TAB PO ONE (11:39)
--- NOTE | 2019-02-12 12:06 | CONS ---
CONSULTATION REPORT: DATE OF CONSULT: 02/12/19 ATTENDING PHYSICIAN: Dr. Frederic Levine, Cardiology.* (DICTATED BY NATHAN ESTRADA NP) PRIMARY DATASTAGE DEVELOPER: Dr. Cardenas. PRIMARY PHYSICIAN: Dr. Byrd. REASON FOR CONSULT: Abnormal stress test 02/11/19. HISTORY OF PRESENT ILLNESS: This is a pleasant 78-year-old male patient with a notable history of hyperlipidemia, unprovoked PE, DVT in 2017, on Eliquis therapy, who presented to [facility], 02/11/19, at the discretion of his primary screen printing press operator, Dr. Cardenas, due to abnormal stress test. According to exercise nuclear stress test dictated report, the patient's exercised for 4 minutes and 6 seconds achieving 7 METs. He was able to achieve 85% of his maximum predicted heart rate. There was reproduction of chest pain rated as 5/10 during stress portion that resolved in recovery. There was occasional VPCs, no VT. There is [address] segment depression concerning for ischemia. Nuclear imaging reports LVEF 62%, TID 1.106 with reversible ischemia in the distal anterior wall extending to the apex. The patient has not had recurrent chest pain since stress test. Currently, he is asymptomatic. Last dose of Eliquis was 02/11/19 at 0200. He has been on IV heparin since. Retrospectively, he states that he has always had a component of dyspnea on exertion since his submassive pulmonary embolism in 2017. Apparently at that time, per discharge summary, the patient was having chest pain, dyspnea on exertion, and right shoulder discomfort. Troponin peaked at 0.41 at that time. Echocardiogram revealed mild RV dilatation. Unfortunately, right ventricular systolic pressure was not assessed. In the past month and half, however, he has had decreased exercise ability. Apparently, he walks his dog a mile a day and he has been having to stop 10 minutes into the walk due to this exertion with described burning chest discomfort. He denies dizziness, palpitations, sensation of heart racing. Denies resting symptoms. He also reports exertional shortness of breath with other activities that he used to be able to tolerate such as lifting a bag of recyclables. Pain is also worse with incline as his shortness of breath. Last echocardiogram according to our medical records was 08/18/16. At that time , LVEF was 60% to 65% with mild RV strain, trace mitral regurgitation, trace tricuspid regurgitation. PAST MEDICAL HISTORY: 1. Submassive PE right lobe with associated RV strain and troponinemia, August 2016. 2. Right peroneal and posterior tibialis DVT. 3. Chronic left peroneal DVT. 4. VPCs. PAST SURGICAL HISTORY: Includes: 1. Left eye cataract surgery. 2. Appendectomy. 3. Tonsil and adenoidectomy. MEDICATIONS: Home medications listed: 1. Eliquis 5 mg p.o. b.i.d. 2. Daily multivitamin. 3. Vitamin C 250 mg daily. 4. Prostate supplement. ALLERGIES: Reported avocado, which causes tingling involving the palate and GI upset. He denies allergy to contrast dye, shell fish, red dye, or aspirin. FAMILY HISTORY: Father at age 78 due to complications of pulmonary embolism. Mother at age 78 due to complications from thymus cancer. She did have myocardial infarction at age 60. Sibling history is noncontributory. SOCIAL HISTORY: The patient is . Lives at home with his . 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 He is quite active, walks a mile a day with his dog. Otherwise reports never utilizing tobacco products. Denies alcohol use or drug use. REVIEW OF SYSTEMS: All systems have been reviewed and are otherwise negative, except as mentioned above in the HPI. PHYSICAL EXAMINATION: Temperature is 97.8, pulse 59, respirations 20, oxygenation 97% on room air, blood pressure 135/66. General: The patient is alert and oriented x3, cooperative with exam, appears in no apparent distress, lying in bed upon entering the room. HEENT: Head is atraumatic, normocephalic. Oral mucosa is moist. Tongue is midline. Neck: Supple. No JVD. No carotid bruit. No thyromegaly. Cardiac: Normal S1 and S2. Regular rate and rhythm. No murmur, rub, or gallop noted. Lungs: Auscultated posteriorly. No evidence of adventitious breath sounds. /GI: Abdomen is soft, nontender, nondistended. Positive bowel sounds throughout. Extremities: No pedal edema. No clubbing. No cyanosis. Strong ulnar and radial pulses palpated bilaterally. Skin: Positive discoloration involving bilateral lower extremities concerning for venous insufficiency. DIAGNOSTIC STUDIES/LAB DATA: Blood work obtained on 02/12/19: White count 4.9 , hemoglobin 14.2, hematocrit 42, platelets 214. INR 1.15. Sodium 140, potassium 4.6, chloride 109, carbon dioxide 29, BUN 15, creatinine 0.96, glucose 105. LDL 126, HDL 39.2, total cholesterol 175, triglycerides 51. ECG 02/12/19, sinus rhythm rate 57. No ST segment elevation or depression. No T- wave abnormalities appreciated. ASSESSMENT AND PLAN: 1. CCS class 2 angina symptoms with abnormal exercise nuclear stress test with reproduction of chest pain, horizontal [address] segment depression and reversible ischemia involving the distal anterior wall extending to the apex. The patient is not on aspirin, statin, or beta-blockade therapy. LDL is 126. Given risk factors including positive family history, hyperlipidemia, and age and abnormal stress test suggestive of reversible anterior ischemia, we will proceed with cardiac catheterization. Last dose of Eliquis was at 0200 on 02/11. Procedure was reviewed with the patient including risks and benefits not limited to bleeding, infection, risks of vessel damage, dissection, possible requirement of aspirin, possible requirement of dual antiplatelet therapy, referral for bypass surgery, deployment of cardiac stent, risk of stroke, heart attack, or . The patient is agreeable to proceed with procedure. Consent will be obtained by proceduralist, Dr. Frederic Levine. Please note that post catheterization, medication regimen will need to be addressed if the patient truly has coronary artery disease. 2. History of unprovoked pulmonary embolism and DVT in August of 2016. I called Dr. Byrd's office. The patient had an incomplete thrombophilia evaluation. According to his lab staff, the patient had a negative factor V Leiden mutation. Protein C, protein S, lipids, anticoagulant, prothrombin gene mutation, antiphospholipid antibodies and antithrombin were not obtained. The patient has been off Eliquis since 0200 on 02/11/19. Thus, we will update thrombophilia evaluation. Please note that lupus anticoagulant cannot be measured at this time. Antithrombin could be lowered because the patient is on heparin therapy. We will keep this in mind when we interpret laboratory studies. We will continue IV heparin for now and we will reevaluate post catheterization given possible need for dual antiplatelet therapy. 3. History of hyperlipidemia. LDL goal if patient has coronary artery disease is less than 70. He is agreeable to starting statin therapy after cardiac catheterization. We will reevaluate. 4. History of right ventricular strain with submassive pulmonary embolism in 2017. Unfortunately, right ventricular systolic pressure was not assessed at that time. We would recommend eventual updated echocardiogram to reevaluate given pulmonary hypertension could be contributing to dyspnea on exertion. 5. Disposition, pending course. The patient is full code. Dr. Frederic Levine has personally seen and examined the patient and agrees with the above assessment and plan. Thank you for this kind consultation. We will follow closely. Any future questions or concerns, please do not hesitate to contact our service. NATHAN ESTRADA NP [id number]/[facility] #: [id number] ELEANOR
[2019-02-12] MEDS ORDERED: Heparin 2 UNITS/ML IVPREMIX* 3,000 UNIT/1,500 ML BAG IV ONE (13:01)
[2019-02-12] MEDS ORDERED: Midazolam* 1 MG/ML 5 ML VIAL (5 MG) ONE (13:01)
[2019-02-12] MEDS ORDERED: VERAPAMIL 2.5 MG/ML 2 ML VIAL ** 5 mg/2 ml ONE (13:01)
[2019-02-12] MEDS ORDERED: fentaNYL* 50 MCG/ML 2 ML VIAL (100 MCG VIAL) ONE (13:01)
[2019-02-12] MEDS ORDERED: Heparin(*) 1000 UNIT/ML 10 ML VIAL CATH LAB IV ONE (13:01)
[2019-02-12] MEDS ORDERED: nitroGLYCERIN DRIP* 25,000 MCG/250 ML BTL ONE (13:02)
[2019-02-12] MEDS ORDERED: Iohexol 350 (CONTRAST) 200 ML MDV IV ONE (13:02)
[2019-02-12] MEDS ORDERED: Lidocaine 1% INJ* 10 MG/ML 30 ML SDV ONE (13:02)
[2019-02-12] MEDS ORDERED: Nitroglycerin TAB 0.4 MG* 0.4 MG TAB SL PRN (16:01)
--- NOTE | 2019-02-12 17:22 | PN ---
Subjective Interval History: No acute events overnight. Afebrile s/p C with Dr. Levine today, no stent placed. Awaiting formal report but per patient there were either two coronary arteries that had significant stenosis or one in two places that would need multiple stents. Reportedly consult to [place] for possible bypass denies provoking factors to his PE two years ago other than a lot of sitting each day. MELÉNDEZ acclerated over last 6 weeks. Objective Active Medications: Acetaminophen (Tylenol Tab*) 650 mg PO Q4H PRN PRN Reason: Pain 1-12/12 Apixaban (Eliquis*) 5 mg PO BID [facility] Aspirin (Aspirin 81 Mg Chew Tab*) 81 mg PO DAILY [facility] Atorvastatin Calcium (Lipitor*) 80 mg PO 1700 [facility] Sodium Chloride (Ns 0.9% 1000 Ml) 1,000 mls @ 100 mls/hr IV .per rate [facility] Stop: 02/12/19 17:59 Metoprolol Tartrate (Lopressor Tab*) 25 mg PO Q6H [facility] Nitroglycerin (Nitroglycerin Tab 0.4 Mg*) 0.4 mg SL Q5M PRN PRN Reason: ANGINA Vital Signs - 8 hr 02/12/19 02/12/19 02/12/19 12:22 14:48 14:51 Temperature 98.2 F Pulse Rate 64 68 70 Respiratory 20 14 14 Rate Blood Pressure 129/68 122/74 (mmHg) O2 Sat by Pulse 96 95 95 Oximetry 02/12/19 02/12/19 02/12/19 15:00 15:06 15:15 Temperature Pulse Rate 76 77 Respiratory 15 16 Rate Blood Pressure 123/64 (mmHg) O2 Sat by Pulse 94 94 96 Oximetry 02/12/19 02/12/19 02/12/19 15:21 15:36 15:51 Temperature Pulse Rate 74 70 73 Respiratory 12 15 10 Rate Blood Pressure 124/69 121/68 111/70 (mmHg) O2 Sat by Pulse 96 96 95 Oximetry 02/12/19 02/12/19 02/12/19 16:00 16:06 16:36 Temperature Pulse Rate 65 65 63 Respiratory 15 14 13 Rate Blood Pressure 122/81 145/72 (mmHg) O2 Sat by Pulse 96 96 98 Oximetry 02/12/19 02/12/19 02/12/19 16:51 17:00 17:06 Temperature Pulse Rate 75 72 62 Respiratory 17 19 20 Rate Blood Pressure 146/81 139/74 (mmHg) O2 Sat by Pulse 97 97 98 Oximetry Oxygen Devices in Use Now: None Appearance: NAD Eyes: No Scleral Icterus Ears/Nose/Mouth/Throat: NL Teeth, Lips, Gums Neck: NL Appearance and Movements; NL JVP Respiratory: Symmetrical Chest Expansion and Respiratory Effort, Clear to Auscultation Cardiovascular: NL Sounds; No Murmurs; No JVD, RRR Abdominal: NL Sounds; No Tenderness; No Distention, No Hepatosplenomegaly Extremities: No Edema Skin: No Rash or Ulcers Neurological: Alert and Oriented x 3 Nutrition: Taking PO's Result Diagrams: 02/12/19 05:30 02/12/19 05:30 Additional Lab and Data: Laboratory Results - last 24 hr 02/12/19 02/12/19 02/12/19 05:30 05:30 05:30 WBC 4.9 RBC 4.70 Hgb 14.2 Hct 42 MCV 90 MCH 30 MCHC 34 RDW 14 Plt Count 214 MPV 8.5 Neut % (Auto) 68.0 Lymph % (Auto) 18.7 [place] % (Auto) 10.3 Eos % (Auto) 2.5 Baso % (Auto) 0.5 Absolute Neuts (auto) 3.3 Absolute Lymphs (auto) 0.9 L Absolute Monos (auto) 0.5 Absolute Eos (auto) 0.1 Absolute Basos (auto) 0.0 Absolute Nucleated RBC 0.0 Nucleated RBC % 0.0 INR (Anticoag Therapy) 1.15 H APTT 64.7 H Sodium 140 Potassium 4.6 Chloride 109 Carbon Dioxide 29 Anion Gap 2 BUN 15 Creatinine 0.96 Est GFR ( Amer) 92.1 Est GFR (Non-Af Amer) 76.2 BUN/Creatinine Ratio 15.6 Glucose 105 H Calcium 9.0 B-Natriuretic Peptide Triglycerides 51 Cholesterol 175 LDL Cholesterol 126 HDL Cholesterol 39.2 02/12/19 02/12/19 05:30 10:48 WBC RBC Hgb Hct MCV MCH MCHC RDW Plt Count MPV Neut % (Auto) Lymph % (Auto) [place] % (Auto) Eos % (Auto) Baso % (Auto) Absolute Neuts (auto) Absolute Lymphs (auto) Absolute Monos (auto) Absolute Eos (auto) Absolute Basos (auto) Absolute Nucleated RBC Nucleated RBC % INR (Anticoag Therapy) APTT 58.1 H Sodium Potassium Chloride Carbon Dioxide Anion Gap BUN Creatinine Est GFR ( Amer) Est GFR (Non-Af Amer) BUN/Creatinine Ratio Glucose Calcium B-Natriuretic Peptide 63 Triglycerides Cholesterol LDL Cholesterol HDL Cholesterol Assess/Plan/Problems-Billing Assessment: 78 yo male PMH unprovoked PE/EVT 2016 p/w worsening MELÉNDEZ, intermediate stress test. s/p [facility] 02/[address] Levine with reported 2v disease, may neen bypass. HLD. - Patient Problems (1) CAD (coronary artery disease) Current Visit: Yes Status: Acute Code(s): I25.10 - ATHSCL HEART DISEASE OF [place] CORONARY ARTERY W/O ANG PCTRS SNOMED Code(s): 86043803 Comment: BB, statin, aspirin. f/u formal [facility] report and [facility] consultation. may need bypass. (2) HLD (hyperlipidemia) Current Visit: Yes Status: Acute Code(s): E78.5 - HYPERLIPIDEMIA, UNSPECIFIED SNOMED Code(s): 38275934 Comment: atorvastatin (3) DVT prophylaxis Current Visit: No Status: Acute Code(s): YDY6452 - SNOMED Code(s): 307873086 Comment: eliquis (4) Full code status Current Visit: No Status: Acute Code(s): Z78.9 - OTHER SPECIFIED HEALTH STATUS SNOMED Code(s): 724354954 (5) Pulmonary embolism Current Visit: No Status: Acute Code(s): I26.99 - OTHER PULMONARY EMBOLISM WITHOUT ACUTE COR PULMONALE SNOMED Code(s): 65087271 Comment: - resolved, unprovoked but with paternal history. hypercoag w/u per cardiology - restarting Eliquaileen.
[2019-02-12] MEDS: Metoprolol Tartrate TAB* 25 MG PO SCH ×2 (17:36→23:13)
[2019-02-12] MEDS: Apixaban* 5 MG TAB PO SCH (20:29)
[2019-02-13] MEDS: Metoprolol Tartrate TAB* 25 MG PO SCH (05:40)
[2019-02-13] MEDS ORDERED: Aspirin 81 mg CHEW TAB* 81 MG TAB.CHEW PO SCH (09:00)
[2019-02-13] MEDS ORDERED: Metoprolol Tartrate TAB* 25 MG PO SCH (09:00)
--- NOTE | 2019-02-13 10:24 | PN ---
Subjective Date of Service: 02/13/19 - abnormal stress test, s/p [facility] Interval History: Pt had no events last night. Some episodes of bradycardia while sleeping. Pt reports ambulating in room and to bathroom w/o return of symptoms and denies any lightheadedness or dizziness. Lopressor doses were held d/t low HR. Nurse denies any issues overnight or this AM. Medications Active Medications: Acetaminophen (Tylenol Tab*) 650 mg PO Q4H PRN PRN Reason: Pain 1-12/12 Apixaban (Eliquis*) 5 mg PO BID [facility] Last Admin: 02/12/19 20:29 Dose: 5 mg Aspirin (Aspirin 81 Mg Chew Tab*) 81 mg PO DAILY [facility] Atorvastatin Calcium (Lipitor*) 80 mg PO 1700 [facility] Metoprolol Tartrate (Lopressor Tab*) 25 mg PO Q12HR [facility] Nitroglycerin (Nitroglycerin Tab 0.4 Mg*) 0.4 mg SL Q5M PRN PRN Reason: ANGINA Objective Vital Signs: Temp Pulse Resp BP Pulse Ox 97.9 F 56 16 131/69 99 02/13/19 03:58 02/13/19 03:58 02/13/19 03:58 02/13/19 03:58 02/13/19 03:58 Oxygen Devices in Use Now: None Appearance: Elderly male, reclined comfortably in bed. Alert and oriented. Pleasant and cooperative. Respiratory: Symmetrical Chest Expansion and Respiratory Effort, Clear to Auscultation Cardiovascular: NL Sounds; No Murmurs; No JVD, RRR, No Edema Extremities: No Edema Skin: - - Right radial wrist access site shows no erythema, ecchymosis, or drainage. No hematoma palpated. Non tender to palaption. Strong radial and ulnar pulse. Neurologically intact digits, motor function intact in hand. Neurological: Alert and Oriented x 3 Lines/Tubes/Other Access: Clean, Dry and Intact Peripheral IV Laboratory Results: 02/12/19 05:30 02/12/19 05:30 INR (Anticoag Therapy) 1.15 (0.82-1.09) H 02/12/19 05:30 APTT 58.1 seconds (26.0-38.0) H 02/12/19 10:48 Total Bilirubin 0.70 mg/dL (0.2-1.0) 02/11/19 14:31 AST 19 U/L (13-39) 02/11/19 14:31 ALT 18 U/L (7-52) 02/11/19 14:31 Alkaline Phosphatase 80 U/L (34-104) 02/11/19 14:31 B-Natriuretic Peptide 63 pg/mL (<=100) 02/12/19 05:30 Total Protein 6.8 g/dL (6.4-8.9) 02/11/19 14:31 Albumin 4.1 g/dL (3.2-5.2) 02/11/19 14:31 Globulin 2.7 g/dL (2-4) 02/11/19 14:31 Albumin/Globulin Ratio 1.5 (1-3) 02/11/19 14:31 Triglycerides 51 mg/dL 02/12/19 05:30 Cholesterol 175 mg/dL 02/12/19 05:30 LDL Cholesterol 126 mg/dL 02/12/19 05:30 HDL Cholesterol 39.2 mg/dL 02/12/19 05:30 02/11/19 02/11/19 02/11/19 14:31 17:46 20:18 Troponin I 0.02 0.03 0.03 Laboratory Results - last 24 hr 02/12/19 10:48 APTT 58.1 H Diagnostic Imaging: Patient Name: ANDREW HAYWOOD Medical Record#: [id number] Ordering Physician: Dorothea Cardenas MD Acct.#: [id number] : 1940 Age: 78 Sex: M Location: IMAGING Exam Date: 02/11/19 ADM Status: REG REF Order Information: NM MYOCARDIAL MULTI RESTING Accession Number: [id number] CPT: 63957 HISTORY: CHEST PAIN, UNSPECIFIED COMPARISONS: None TECHNIQUE: A 1 day stress/rest myocardial perfusion study was performed, with exercise stress. The exercise portion was performed using the Jose protocol, for a total METs of 7. The stress portion was monitored by Dr. Cardenas. Gated SPECT imaging was performed, with CT-based attenuation correction. DOSE: Stress: Technetium 99m tetrofosmin, 25.7 millicuries, injected at 10:43 AM on February 11, 2019 Rest: Technetium 99m tetrofosmin, 10.16 millicuries, injected at 9:00 AM on February 11, 2019 Pharmacologic agent: None FINDINGS: CARDIAC MONITORING: Peak heart rate of 141 bpm, 90% of predicted. [address] depression with stress. EF: 62% TID: 1.16 MOTION: Normal motion, with normal wall thickening. PERFUSION: There is photopenia involving the distal anterior wall extending to the apex that is reversible. OTHER: None IMPRESSION: REVERSIBLE HYPOPERFUSION OF THE DISTAL ANTERIOR WALL EXTENDING TO THE APEX CONSISTENT WITH AN AREA OF ISCHEMIA. ASSESSMENT: INTERMEDIATE RISK. Based on imaging criteria from ACC/AHA 2002. Guideline Update for the Management of Patient's with Chronic Stable Angina, table 23. Noninvasive Risk Stratification. <Electronically signed by Donald Schwab MD in OV> 02/11/19 120 Dictated By: Donald Schwab MD Dictated Date/Time: 02/11/191206 Transcribed Date/Time: 02/11/19 120 Copy to: This report is only to be considered final once signed by the Provider(s) as displayed in the "<Electronically Signed by >" field (s). Absence of a signature indicates the report is in a draft status and still needs to be finalized. In the event this document was created by someone other than the signing Provider, the individual initiating the document will be listed in the "Entered by:" or "Dictated by:" baird. 1 of 2 EKG Data: Telemetry reviewed. Pt in sinus rhythm. rate 60s. Relative bradycardia while asleep last night, not symptomatic. No VPCs or NSVT. ECG from 02/12/2019 reviewed: NSR, rate 64, no T wave abnormalities. Assessment/Plan 1. abnormal stress test, with complaints of decreased exercise capacity, dyspnea on exertion, chest discomfort symptomatology consistent w CCS class II angina. S/p [facility] Dr. Lazaro, revealed double vessel disease (LAD, RCA) with right to left and left to right collaterals. LVF preserved. Now on ASA 81mg qd, Lopressor 25mg bid, Lipitor 80mg qHS. Initiating Imdur 30mg qd. Right radial access site assessed and intact. No hematoma. Spoke with Dr. Levine who stated [facility] is aware of pt's case and Dr. Ricketts, [facility] will contact pt to address f/u for possible CABG evaluation v PCI. Pt to f/u on 02/18/2019 at 2:[address] Eddy Simons. Pt was educated on concerning symptoms including recurrence of CP, SOB, syncope, or resting symptoms. Pt aware he should seek immediate treatment or call 911 if these occur. Pt verbalized understanding and agreement. Pt was recommended to avoid strenuous activities that would provoke angina. 2. Newly diagnosed CAD. Pt started on ASA 81mg qd, Lopressor 25mg bid, Lipitor 80mg qHS. Initiating Imdur 30mg qd. 3. H/o unprovoked PE/DVT. Continued on Eliquis since 2017. Historically ruled out for Factor V Leiden Deficiency. Full thrombophilic panel drawn and sent. Results expected by 02/18/2019. We will f/u on labs on an OP basis. 4. H/o of HLD. LDL 126. Now on Lipitor 80mg qHS. Will need FLP/LFT in 6-8wks d/ t initiation of high intensity statin therapy. Goal LDL less than 70 d/t above # 2. 5. Disposition. Pending course. Pt full code. Discussed with Dr. Levine who agrees with the above assessment and plan. Will likely sign off case if pt tolerated Imdur. Attending: Frederic Levine
[2019-02-13] MEDS ORDERED: Isosorbide Mononitrate ER TAB* 30 MG PO SCH (11:00)
[2019-02-13 11:12] VITALS: BP 133/65
[2019-02-13] MEDS: Apixaban* 5 MG TAB PO SCH (11:13)
[2019-02-13] MEDS ORDERED: Atorvastatin* 80 MG TAB PO SCH (17:00)
[2019-02-13 18:51] LABS: Phospholipid Ab IgG < 9.4 GPL; Phospholipid Ab IgM, S < 9.4 MPL
--- NOTE | 2019-02-14 10:42 | DS ---
DISCHARGE SUMMARY: DATE OF ADMISSION: 02/11/19 DATE OF DISCHARGE: 02/13/19 ADMITTING PROVIDER: Mildred Garcia NP PRIMARY CARE PHYSICIAN: Valentino Byrd MD OUTPATIENT TOOLING SPECIALIST: Dr. Cardenas. CONSULTING GOLF SHOE SPIKE ASSEMBLER: Dr. Levine. PRINCIPAL DIAGNOSIS: Intermittently positive stress test in the setting of progressive dyspnea on exertion. CHIEF COMPLAINT: Multivessel coronary artery disease on left heart catheterization, hyperlipidemia. HISTORY OF PRESENT ILLNESS AND HOSPITAL COURSE: Hiram Smith is a 78-year- old male with past medical history of unprovoked pulmonary embolism in 2017 (on Eliquis). Please see H and P of Mildred Garcia NP, for full details, but briefly he had had progressive dyspnea on exertion that had initially improved after initial treatment for the pulmonary embolism, but had returned and gotten more significant over the last 6 plus weeks. He had an outpatient stress test which was intermittently positive, showing reversible hypoperfusion of the distal anterior wall extending to the apex consistent with areas of ischemia. He was sent by Dr. Cardenas for further evaluation and a left heart catheterization on hospital day #2 showed multivessel coronary artery disease. The official cath report is still pending dictation, but per written notes, left main was clear, LAD had severe proximal mid and distal disease, the RCA had proximal 90% lesion, severe mid lesion. There was right to left collaterals of the LAD and left to right collaterals of the posterior descending artery. EF was 60%. The patient recovered well, was not intervened , and is being referred to Dr. Rolf Philippe for further bypass evaluation in [place]. There was also an attempt to clarify his risk for further pulmonary embolism, DVT given the unprovoked nature in 2017. As he had been worked up for factor V Leiden deficiency in the past, full hypercoagulability workup was sent. He had been held off his Eliquis notably and stopped briefly off the heparin, which he had been started on, to ensure there is no interference. These results are pending, it should be followed up. He is started on new beta - sudheer, statin, aspirin, and continued on his Eliquis. Labs to follow are the prothrombin 2210 gene mutation, protein C activity and antigen, protein S activity and antigen, phospholipid antibody and cardiolipin IgG and IgM. His LDL was 126, HDL was 39, BNP was checked 63. He was also on day of discharge started on Imdur 30 mg daily. His left heart cath access was through his right radial. DISCHARGE MEDICATIONS: Include: 1. Eliquis 5 mg p.o. b.i.d. 2. Ascorbic acid 250 mg p.o. daily. 3. Aspirin 81 daily (new). 4. Atorvastatin 80 mg daily (new). 5. Prostate 2.4 capsule 1 capsule p.o. b.i.d. 6. Isosorbide mononitrate (Imdur) extended release 30 mg daily (new). 7. Probiotic daily. 8. Metoprolol tartrate 25 mg q.12 hours (new). 9. Multivitamin tab. FOLLOWUP: He was asked to call Dr. Rolf Philippe's office to help expedite evaluation for CABG. Dr. Levine was also in contact with Dr. Philippe. He should follow up with PCP, Dr. Valentino Byrd, within 7 to 10 days. He also has followup with Dr. Eddy Simons on 02/18/19 at 2:45 p.m. DISPOSITION: Home. CONDITION: Guarded. DIET: Heart healthy. TIME SPENT ON DISCHARGE: 35 minutes. [id number]/[facility] #: [id number] [facility]
[2019-02-17 17:57] LABS: Prothrombin 20210 Mutation Negative (Negative)
[2019-02-19 10:39] LABS: Prothrombin 20210 Mutation Negative (Negative)
--- NOTE | 2019-02-24 17:48 | CATH ---
CC: Dr. Byrd; Dr. Cardenas; Dr. Philippe, [facility]* CATHETERIZATION REPORT: DATE OF PROCEDURE: 02/12/19 - ROOM #447 PRIMARY CARE PHYSICIAN: Dr. Byrd. INFORMATION SECURITY OFFICER: Dr. Cardenas. PROCEDURE: Right radial artery access. DIAGNOSTIC CATHETERS: 5F TIG4, 5FR 4, 5FL 3.5, 5F pigtail. HISTORY: A 78-year-old male with moderate predictable exertional angina, stress imaging with a moderate size apical defect. His stress test was intermediate risk. PROCEDURE ACCESS: Right radial artery, sheath 6F slender. MEDICATIONS: 1. Subcu lidocaine. 2. IV Versed. 3. IV fentanyl. 4. Heparin 3000 units. 5. Verapamil 3 mg. 6. Nitroglycerin 300 mcg IA. HEMODYNAMICS: Initial AO: 135/72. LV precontrast, 133/3-18, no aortic valve gradient on pullback. ANGIOGRAPHY: Left main: The left main is large, long, has a distal inferior 20 % stenosis. LAD: The LAD is moderate to large, with heavy calcification of the LAD. After the first septal, there is an 80% to 90% stenosis, followed by a small diagonal branch. Mid LAD supplies a bifurcated [id number] diagonal, after which the LAD has 75% to 80% stenosis with some lucency, the vessel then reconstitutes , has a 50% stenosis, then wraps around the apex. Circumflex: The circumflex is nondominant. With proximal 50% stenosis, it supplies 2 moderate marginals and 2 the large posterolateral. There are left to right collaterals to the distal RCA. RCA: The RCA is dominant, moderate, has an 80% proximal stenosis, the RV free wall branch is followed by more distal 80% stenosis before the crux. There was a tubular 70% stenosis at the crux, the PDA is small, distal RCA continuation has competitive flow, maybe under-filled. LV: Wall motion is normal with prominent papillary muscles and estimated LVEF 65%. CONCLUSION: 1. Three-vessel disease. 2. Elevated LVEDP. 3. Normal LV systolic function. 4. Successful right radial artery access. 5. His films will be reviewed regarding revascularization. [id number]/[facility] #: [id number] [facility]
== END 2019-02-13 14:51 | disposition home or self-care (01) | DRG 287 ==
LOC: ED 14:19 → MEDTELE 18:21 → OBSVTOIN 02-12 11:00
PROVIDERS: ADMIT Internal Medicine; ATTEND Internal Medicine
PROC: B2151ZZ Fluoroscopy of Left Heart using Low Osmolar Contrast (ICD-10-PCS; 2019-02-12)
PROC: B2111ZZ Fluoroscopy of Multiple Coronary Arteries using Low Osmolar Contrast (ICD-10-PCS; principal; 2019-02-12 13:30)
DX: I25.118 Atherosclerotic heart disease of native coronary artery with other forms of angina pectoris (principal); E78.5 Hyperlipidemia, unspecified; G43.809 Other migraine, not intractable, without status migrainosus; H26.9 Unspecified cataract; R00.1 Bradycardia, unspecified; I08.1 Rheumatic disorders of both mitral and tricuspid valves; Z86.711 Personal history of pulmonary embolism; Z79.01 Long term (current) use of anticoagulants; Z86.718 Personal history of other venous thrombosis and embolism; Z79.82 Long term (current) use of aspirin; Z82.49 Family history of ischemic heart disease and other diseases of the circulatory system; Z83.2 Family history of diseases of the blood and blood-forming organs and certain disorders involving the immune mechanism; Z80.0 Family history of malignant neoplasm of digestive organs; Z80.8 Family history of malignant neoplasm of other organs or systems; Z91.018 Allergy to other foods; Z98.42 Cataract extraction status, left eye
CPT/HCPCS: 36415; 80048; 80053; 80061; 81240; 82565; 83880; 84484; 84520; 85025; 85302; 85303; 85306; 85610; 85730; 86147; 93005; 93458; 99284; A9270-GY; G0378; J1644; J2250; J3010

== ENCOUNTER 2019-05-21 16:44 | Emergency (ER) | payer MEDICARE, BC, OTHER ==
--- NOTE | 2019-05-21 17:21 | ED ---
Complex/Multi-Sys Presentation - HPI Summary HPI Summary: Pt is a 78 y/o M presenting to the ED for a chief complaint of generalized weakness for the last 3-4 days. Pt admits muscle aches and soreness diffuse throughout the body that worsens at night. Pt also admits fatigue and nausea. Pt had a syncopal episode while walking upstairs at his house and was found by his who called EMS. Pt does not recall having the syncopal episode. Pt denies CP, fever, cough, vomiting, or diarrhea. Pt has lost 15 pounds since February. Pt states he had a tick bite 6 days ago, but denies rash anywhere on his body. Pt had another tick bite 10 years ago that caused fatigue and muscle aches. Pt was diagnosed with cardiac disease recently and began a vegan diet since the diagnosis. Pt sees Dr. Flores who performed an angiogram and stress test for SOB. Pt denies SOB on exertion since starting medication. Pt is takes Eliquis and NTG. Pt has not yet had an influenza vaccination due to shortage. Pt has a PMHx of pulmonary embolism and HLD. Pt has a PSHx of tonsillectomy and adenoidectomy, and appendectomy. Pt denies tobacco, alcohol, or drug use. 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 Allergies noted. Medications reviewed. - History Of Current Complaint Chief Complaint: EDWeakness Time Seen by Provider: 05/21/19 16:53 Hx Obtained From: Patient Onset/Duration: Sudden Onset, Lasting Days - 3-4 days, Still Present Timing: Days - 3-4 days Severity Currently: Moderate Severity Initially: Moderate Associated Signs And Symptoms: Positive: Weakness - Generalized, Syncope, Nausea. Negative: SOB - Resolved, Cough, Chest Pain, Vomiting, Diarrhea, Fever - Allergies/Home Medications Allergies/Adverse Reactions: Allergies Allergy/AdvReac Type Severity Reaction Status Date / Time avocado AdvReac Severe See Comment Verified 02/11/19 14:27 PMH/Surg Hx/FS Hx/Imm Hx Previously Healthy: Yes Endocrine/Hematology History: Denies: Hx Bone Marrow Disease, Hx Diabetes, Hx Sickle Cell Disease, Hx Anemia Cardiovascular History: Reports: Hx Angina Denies: Hx Coronary Artery Disease, Hx Hypercholesterolemia, Hx Hypertension , Hx Myocardial Infarction, Hx Pacemaker/ICD, Hx Valvular Heart Disease Respiratory History: Reports: Hx Pulmonary Embolism - 08/2016 from blood clot in leg Denies: Hx Asthma, Hx Chronic Obstructive Pulmonary Disease (COPD) - hx PE 2016 History: Reports: Hx Benign Prostatic Hyperplasia, Other Problems/ Disorders - hx of prostate biopsy 11/10, enlarged prostate Denies: Hx Chronic Renal Failure, Hx Renal Disease Sensory History: Reports: Hx Cataracts - right eye, Hx Contacts or Glasses - reading glasses Denies: Hx Hearing Aid Opthamlomology History: Reports: Hx Cataracts - right eye, Hx Contacts or Glasses - reading glasses Neurological History: Reports: Hx Migraine - occasional ocular migraine- appox 3 x per year - Surgical History Surgical History: Yes Surgery Procedure, Year, and Place: TONSILLECTOMY 1952 [facility]. APPENDECTOMY 1970 [place], [place]. BIOPSY OF PROSTATE 2007 [facility]. CATARACT LEFT EYE Hx Anesthesia Reactions: No Infectious Disease History: No Infectious Disease History: Denies: Traveled Outside the US in Last 30 Days - Family History Known Family History: Positive: Cardiac Disease - mother with OK in her 70s - Social History Alcohol Use: None Hx Substance Use: No Substance Use Type: Reports: None Hx Tobacco Use: No Smoking Status (MU): Never Smoked Tobacco Have You Smoked in the Last Year: No Review of Systems Positive: Fatigue. Negative: Fever Negative: Chest Pain Negative: Shortness Of Breath - Resolved, Cough Positive: Nausea. Negative: Vomiting, Diarrhea Positive: Myalgia - Diffuse throughout the body Negative: Rash Positive: Weakness - Generalized, Syncope All Other Systems Reviewed And Are Negative: Yes Physical Exam - Summary Physical Exam Summary: Constitutional: Well-developed, Well-nourished, Alert. (-) Distressed Skin: Warm, Dry HENT: Normocephalic; Atraumatic Eyes: Conjunctiva normal Neck: Musculoskeletal ROM normal neck. (-) JVD, (-) Stridor, (-) Tracheal deviation Cardio: Rhythm regular, rate normal, Heart sounds normal; Intact distal pulses; Radial pulses are 2+ and symmetric. (-) Murmur Pulmonary/Chest wall: Effort normal. (-) Respiratory distress, (-) Wheezes, (-) Rales Abd: Soft, (-) tenderness, (-) Distension, (-) Guarding, (-) Rebound Musculoskeletal: (-) Edema Lymph: (-) Cervical adenopathy Neuro: Alert, Oriented x3 Psych: Mood and affect Normal Triage Information Reviewed: Yes Vital Signs On Initial Exam: Initial Vitals Pulse Resp BP Pulse Ox 57 12 110/55 94 05/21/19 16:48 05/21/19 16:48 05/21/19 16:48 05/21/19 16:48 Vital Signs Reviewed: Yes Procedures - Sedation Patient Received Moderate/Deep Sedation with Procedure: No Diagnostics - Vital Signs Vital Signs Temp Pulse Resp BP Pulse Ox 05/21/19 16:51 99.1 F 58 17 110/55 93 05/21/19 16:48 57 12 110/55 94 - Laboratory Result Diagrams: 05/21/19 17:26 05/21/19 17:26 Lab Statement: Any lab studies that have been ordered have been reviewed, and results considered in the medical decision making process. - Radiology Chest X-ray Radiology Interpretation Completed By: ED Physician Summary of Radiographic Findings: Chest X-ray IMPRESSION: no acute process. Reviewed and interpreted by ED physician. - EKG 17:17 Cardiac Rate: NL - 62 BPM EKG Rhythm: Sinus Rhythm ST Segment: Normal Ectopy: None Summary of EKG Findings: EKG at 17:17 shows 62 BPM with normal sinus rhythm, ST segment flattened in leads II and aVF. Reviewed and interpreted by ED physician. Re-Evaluation - Re-Evaluation 1st re-eval Re-Evaluation Time: 18:46 Change: Unchanged Comment: At 18:46, pt does not want to be admitted, but will discuss with his . Complex Multi-Symp Course/Dx Course Of Treatment: Patient is here with an exertional syncopal episode. Patient has known underlying triple-vessel disease and he is debating CABG versus medical treatment. Patient had an EKG which showed no emergent changes. Patient had a negative troponin. Patient had negative workup in the ED. Given patients known cardiac disease and his exertional syncope, patient was admitted to the hospitalist for further management - Diagnoses Provider Diagnoses: Syncope, Triple vessel disease of the heart - Critical Care Time Critical Care Time: 30-74 min - 35 min Discharge ED - Sign-Out/Discharge Documenting (check all that apply): Patient Departure - Admit - Discharge Plan Condition: Stable Disposition: ADMITTED TO [facility] Referrals: Valentino Byrd MD [Primary Care Provider] - - Billing Disposition and Condition Condition: STABLE Disposition: Admitted to [facility] - Attestation Statements Document Initiated by More: Yes Documenting Scribe: Jesika Wilcox Provider For Whom More is Documenting (Include Credential): Deon Hassan MD Scribe Attestation: IJesika, scribed for Deon Hassan MD on 05/21/19 at 2017. Scribe Documentation Reviewed: Yes Provider Attestation: The documentation as recorded by the Jesika emmanuel accurately reflects the service I personally performed and the decisions made by me, Deon Hassan MD Status of Scribe Document: Viewed Consult Consult: At 19:27, Dr. Mills accepts to admit the pt at [facility] with a diagnosis exertional syncope and triple vessel disease.
[2019-05-21 17:36] LABS: ABS Lymphocytes 0.2 10^3/ul (1.0-4.8); ABS Monocytes 0.3 10^3/ul (0-0.8); ABS Neutrophils 4.1 10^3/ul (1.5-7.7); Eosinophil % 0.1 %; Hematocrit 38 % (42-52); Hemoglobin 13.3 g/dL (14.0-18.0); Lymphocyte % 3.3 %; Mean Corpuscular HGB Conc 35 g/dL (31-36); Mean Corpuscular Hemoglobin 31 pg (27-31); Mean Corpuscular Volume 91 fL (80-94); Mean Platelet Volume 8.3 fL (7.4-10.4); Platelet Count 178 10^3/uL (150-450); Red Blood Count 4.22 10^6 /uL (4.18-5.48); Red Cell Distribution Width 14 % (10-15); White Blood Count 4.6 10^3/uL (3.5-10.8)
[2019-05-21 17:41] LABS: INR 1.56 (0.82-1.09)
[2019-05-21 17:54] LABS: Albumin 3.6 g/dL (3.2-5.2); Albumin/Globulin Ratio 1.5 (1-3); BUN/Creatinine Ratio 14.6 (8-20); Calcium 8.7 mg/dL (8.6-10.3); EGFR African American 92.1 (>60); EGFR Non-African American 76.2 (>60); Globulin 2.4 g/dL (2-4); Potassium 4.1 mmol/L (3.5-5.0); Total Bilirubin 0.5 mg/dL (0.2-1.0)
[2019-05-21 18:10] LABS: Influenza A Molecular NEGATIVE (Negative); Influenza B Molecular NEGATIVE (Negative)
[2019-05-21] MEDS ORDERED: NS 0.9% 1000 ML** 1,000 ML IV ONE (20:23)
[2019-05-21 21:38] VITALS: BP 134/71
--- NOTE | 2019-05-21 23:07 | CONS ---
CONSULTATION REPORT: DATE OF CONSULT: 05/21/19 CONSULTING PROVIDER: Pancho Mills MD PROVIDER REQUESTING CONSULT: Deon Hassan MD of the Emergency Room OUTPATIENT KEYBOARD SPECIALIST: Dr. Christianson PRIMARY CARE PHYSICIAN: Dr. Byrd CHIEF COMPLAINT: Syncope, nausea, muscle aches. HISTORY OF PRESENT ILLNESS: Hiram Smith is 78-year-old male with past medical history of unprovoked pulmonary embolism on Eliquis, recently discovered triple vessel coronary artery disease (LAD 80% to 90%, circ 50%,RCA 90% on [facility] 02/24/19), who has decided to pursue medical management at this time coupled with aggressive diet changes. He had remote consultation with Dr. Dave Espinoza of [facility], who examined his angiograms and along with phone consultations with Dr. Henson of [place] and Dr. Benson as well as local bucket wash operator, Dr. Christianson and he has felt improved in terms of his progressive shortness of breath/MELÉNDEZ since being on the Imdur, metoprolol, and atorvastatin. About 5 or 6 days ago, he noted a tick bite on his left lower abdomen, it was not engorged and he is confident the tick was on his body for less than 3 hours. The day prior to admission, he started to develop some generalized muscle aches in his left scapula radiating to his neck, his bilateral arms, and his bilateral thighs. On the day of consultation, he developed some nausea, and about 30 minutes later, attempted to climb a flight of stairs at his home. He was a little bit unsteady on his feet before this and slightly lightheaded. He lost consciousness falling forward onto the stairs. His was nearby and helped him up and reportedly he had a quick return of consciousness, was transported to the [facility] Emergency Room for further evaluation. He had a unremarkable workup. Initial troponin was 0.00. EKG was normal sinus rhythm with no ischemic changes. His influenza, rapid swabs were negative. BNP was 65. He had a temperature of 99.1, blood pressure initially 110/55, and fell lower to 92/52. He has been without arrhythmia for the last 3-1/2 hours on telemetry. Hospital service was consulted for consideration for admission for syncope. 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 I discussed the case with Dr. Christianson who thought the patient's story was consistent with vasovagal syncope, suggested I continue some more IV fluids, checking Lyme studies and discharge patient home. PAST MEDICAL HISTORY: Triple vessel coronary artery disease (LAD 80% to 90%, circumflex is 50%, RCA 80% to 90%, this was in 02/20, unprovoked pulmonary embolism in 2017, on Eliquis. PAST SURGICAL HISTORY: Tonsillectomy, adenoidectomy, appendectomy. HOME MEDICATIONS: Include: 1. Multivitamin 1 tab p.o. q.a.m. 2. Metoprolol tartrate 25 mg p.o. q.12 hours. 3. Probiotic. 4. Imdur 30 mg p.o. daily. 5. Prostate 2.4 capsule b.i.d. 6. Atorvastatin 80 mg daily. 7. Aspirin 81 mg daily. 8. Ascorbic acid 250 mg p.o. daily. 9. Eliquis 5 mg p.o. b.i.d. ALLERGIES: To [place]. FAMILY HISTORY: His father had a PE, mother had AR at age 62 and thymus cancer. Brother had salivary gland cancer. SOCIAL HISTORY: Denies any alcohol, tobacco, or drug use. Lives at home with his . REVIEW OF SYSTEMS: A complete 14-point review of systems negative except for HPI. PHYSICAL EXAM: General Appearance: No acute distress. Vital Signs: Temperature 99.1, heart rate 58, respiratory rate 17, satting 92% on room air, blood pressure 110/55 then fell to 92/52. HEENT: Normocephalic, atraumatic. Pupils equal, round, and reactive to light. Extraocular motions intact. No scleral icterus. Lungs: Clear to auscultation bilaterally. No wheezing, rales , or rhonchi. Cardiovascular: Regular rate and rhythm. No murmurs, rubs, or gallops. Abdomen: Soft, nontender, nondistended. Extremities: Warm, well perfused. No peripheral edema. Skin: There is a small papule, approximately 8 mm on his left lower quadrant of the abdomen. Neuro: Cranial nerves II through XII intact. Moves all his extremities. LABORATORY DATA: White count 4.6, hemoglobin 13.3, hematocrit 38, platelets 178 , INR 1.56. Sodium 136, potassium 4.1, chloride 106, carbon dioxide 28, BUN 14 , creatinine 0.96, glucose 133, calcium 8.7. Total bili is 0.5, AST 30, ALT 37 , alk phos 90. Troponin 0.00. BNP 65, total protein 6.0. Influenza A and B negative. Chest x-ray formal read pending. By my read, no acute process with no infiltrate or effusion. EKG, normal sinus rhythm, heart rate 62, MA 159. No ST elevations or depressions. Normal axis. QTc is 398. ASSESSMENT AND PLAN: Hiram Smith is a 78-year-old male with history of pulmonary embolism (on Eliquis) and triple vessel coronary artery disease for which he has been attempting medical management and aggressive dietary modification while he considers each new study that comes in. He is presenting with loss of consciousness that was preceded by some nausea and unsteadiness on his feet, both of these have completely resolved. His blood pressures are slightly low here and I discussed the case with his bucket wash operator, Dr. Christianson, who thought his story consistent with vasovagal syncope in setting of his nausea and low blood pressure. He got 1 L of fluid with the EMS and we gave him 1 more liter of fluid here. He has already been walking to the bathroom without symptoms. He has never had any chest pain. Because of his recent tick bite, Dr. Christianson did recommend checking for Lyme disease, this was sent and recommend to be followed up on as an outpatient. The patient is at elevated risk given his known triple vessel disease, but is adamant that he wants to leave the hospital tonight if at all possible. We will give him prescription for Zofran and have him follow up with Dr. Byrd, his primary care doctor and Dr. Christianson as an outpatient. I am going to add on hemoglobin A1c as we do not have any in the system and he has been hyperglycemic here. His last LDL on had improved significantly to 51(from 126), HDL 36.2, and total cholesterol 98. I appreciate the interesting consult. [id number]/[facility] #: [id number] MTDIndy
== END 2019-05-21 21:36 | disposition short-term general hospital (02) ==
LOC: ED 16:44
DX: R55 Syncope and collapse (principal); I51.89 Other ill-defined heart diseases; N40.0 Benign prostatic hyperplasia without lower urinary tract symptoms; E78.5 Hyperlipidemia, unspecified; Z86.711 Personal history of pulmonary embolism; Z79.01 Long term (current) use of anticoagulants; Z79.82 Long term (current) use of aspirin; Z79.899 Other long term (current) drug therapy
CPT/HCPCS: 36415; 71045; 80053; 83036; 83880; 84484; 85025; 85610; 86618; 93005; 96360; 99283

== ENCOUNTER 2019-06-05 15:57 | Emergency (ER) | payer MEDICARE, BC ==
--- NOTE | 2019-06-05 17:26 | ED ---
Complex/Multi-Sys Presentation - HPI Summary HPI Summary: 78 year old male presents to [facility] with feelings of severe myalgia in his shoulders, back, and thighs, as well as weakness all over, starting 6 days ago. Patient stopped taking his prescribed statin 6 days ago because he was having muscle aches. Patient also reports urinary inontinence. Hx CAD. Medications reviewed. Allergies noted. - History Of Current Complaint Chief Complaint: EDWeakness Time Seen by Provider: 06/05/19 17:09 Hx Obtained From: Patient Onset/Duration: Gradual Onset, Lasting Days Severity Currently: Severe Severity Initially: Mild Location: Pain At: - Shoulders, back, thighs Associated Signs And Symptoms: Positive: Weakness - Allergies/Home Medications Allergies/Adverse Reactions: Allergies Allergy/AdvReac Type Severity Reaction Status Date / Time [id number] Reductase Allergy See Comment Verified 06/05/19 16:09 Inhibitor avocado AdvReac Severe See Comment Verified 02/11/19 14:27 PMH/Surg Hx/FS Hx/Imm Hx Endocrine/Hematology History: Denies: Hx Bone Marrow Disease, Hx Diabetes, Hx Sickle Cell Disease, Hx Anemia Cardiovascular History: Reports: Hx Angina Denies: Hx Coronary Artery Disease, Hx Hypercholesterolemia, Hx Hypertension , Hx Myocardial Infarction, Hx Pacemaker/ICD, Hx Valvular Heart Disease Respiratory History: Reports: Hx Pulmonary Embolism - 08/2016 from blood clot in leg Denies: Hx Asthma, Hx Chronic Obstructive Pulmonary Disease (COPD) - hx PE 2016 History: Reports: Hx Benign Prostatic Hyperplasia, Other Problems/ Disorders - hx of prostate biopsy 11/10, enlarged prostate Denies: Hx Chronic Renal Failure, Hx Renal Disease Sensory History: Reports: Hx Cataracts - right eye, Hx Contacts or Glasses - reading glasses Denies: Hx Hearing Aid Opthamlomology History: Reports: Hx Cataracts - right eye, Hx Contacts or Glasses - reading glasses Neurological History: Reports: Hx Migraine - occasional ocular migraine- appox 3 x per year - Surgical History Surgery Procedure, Year, and Place: TONSILLECTOMY 1952 [facility]. APPENDECTOMY 1970 [place], [place]. BIOPSY OF PROSTATE 2007 [facility]. CATARACT LEFT EYE Hx Anesthesia Reactions: No Infectious Disease History: No Infectious Disease History: Denies: Traveled Outside the [place] in Last 30 Days - Family History Known Family History: Positive: Cardiac Disease - mother with IN in her 70s - Social History Alcohol Use: None Hx Substance Use: No Substance Use Type: Reports: None Hx Tobacco Use: No Smoking Status (MU): Never Smoked Tobacco Have You Smoked in the Last Year: No Review of Systems Positive: Myalgia Positive: Weakness All Other Systems Reviewed And Are Negative: Yes Physical Exam - Summary Physical Exam Summary: Constitutional: Well-developed, Well-nourished, Alert. (-) Distressed Skin: Warm, Dry HENT: Normocephalic; Atraumatic Eyes: Conjunctiva normal Neck: Musculoskeletal ROM normal neck. (-) JVD, (-) Stridor, (-) Tracheal deviation Cardio: Rhythm regular, rate normal, Heart sounds normal; Intact distal pulses; Radial pulses are 2+ and symmetric. (-) Murmur Pulmonary/Chest wall: Effort normal. (-) Respiratory distress, (-) Wheezes, (-) Rales Abd: Soft, (-) tenderness, (-) Distension, (-) Guarding, (-) Rebound Musculoskeletal: (-) Edema Lymph: (-) Cervical adenopathy Neuro: Alert, Oriented x3 Psych: Mood and affect Normal Triage Information Reviewed: Yes Vital Signs On Initial Exam: Initial Vitals Temp Pulse Resp BP Pulse Ox 100.6 F 98 20 106/57 96 06/05/19 16:04 06/05/19 16:04 06/05/19 16:04 06/05/19 16:04 06/05/19 16:04 Vital Signs Reviewed: Yes Procedures - Sedation Patient Received Moderate/Deep Sedation with Procedure: No Diagnostics - Vital Signs Vital Signs Temp Pulse Resp BP Pulse Ox 06/05/19 16:04 100.6 F 98 20 106/57 96 - Laboratory Result Diagrams: 06/05/19 17:57 06/05/19 17:57 Lab Statement: Any lab studies that have been ordered have been reviewed, and results considered in the medical decision making process. Complex Multi-Symp Course/Dx Course Of Treatment: Patient is here with myalgias following Crestor. Patient has been off his medicine so continues to have symptoms. Patient had a similar reaction to his prior statin. Patient blood performed which was grossly unremarkable. Patient is discharged with cardiology follow-up. - Diagnoses Provider Diagnoses: Medication reaction, Myalgia Discharge ED - Sign-Out/Discharge Documenting (check all that apply): Patient Departure - discharge - Discharge Plan Condition: Stable Disposition: HOME Patient Education Materials: Musculoskeletal Pain (ED) Referrals: Yon Christianson DO [Medical Doctor] - Additional Instructions: Follow up with Dr. Christianson, Cardiology, in 2-3 days. Return to the emergency room if you experience worsening fatigue or muscle aches. - Billing Disposition and Condition Condition: STABLE Disposition: Home - Attestation Statements Document Initiated by Scribe: Yes Documenting Scribe: Devin Fields Provider For Whom More is Documenting (Include Credential): Deon Hassan MD Scribe Attestation: Devin Patterson , scribed for Deon Hassan MD on 06/06/19 at 2009. Scribe Documentation Reviewed: Yes Provider Attestation: The documentation as recorded by the scribDevin sarmiento accurately reflects the service I personally performed and the decisions made by , Deon Hassan MD Status of Scribe Document: Viewed
--- OUTSIDE RECORDS SUMMARY | 2019-06-05 17:39 | XMS REPORT | Continuity of Care Document ---
:1940 External Reference #:[id number] Author Name Nurse Visit IC (transmitted by agent of provider Stephanie Sandra) Address [address] [facility] 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 Social History Type Date Description Comments Sex Unknown Tobacco Use Start: Unknown Never Smoked Cigarettes Smoking Status Reviewed: 03/12/19 Never Smoked Cigarettes ETOH Use Never used alcohol Tobacco Use Start: Unknown Patient has never smoked Recreational Drug Use Never Used Drugs Exercise Type/Frequency Exercises regularly walking a mile a day Allergies, Adverse Reactions, Alerts Active Allergies Reaction Severity Comments Date Avocado Oil GI upset 02/18/2019 Lipitor 05/28/2019 Medications Active Medications SIG Qnty Indications Ordering Date Provider Crestor 1 by mouth every 30tabs Yon S. 05/28/2019 20mg Tablets day Christianson, DO FACC Ra Aspirin Adult Low chew and swallow 1 90units Yon S. 03/14/2019 Strength tablet by mouth Christianson, DO FACC 81mg daily Chewtabs Nitrostat take as directed 14tabs Z48.1 Eddy Simons, 02/18/2019 0.4mg Barb FACC, Tablets Sub [facility] Isosorbide 1 by mouth every 90tabs Yon S. 02/13/2019 Mononitrate ER day Christianson, DO FACC 30mg Tablets ER 24HR Metoprolol Tartrate 1 by mouth twice a 180tabs Yon Salmon 02/13/2019 day Christianson, DO FACC 25mg Tablets Ascorbic Acid 1 po daily Unknown 250mg Chewtabs Prostate 2.4 1 cap po bid Unknown Capsules Lactobacillus 1 cap oral see Unknown instructions Tablets Eliquis 1 by mouth twice a Unknown 5mg Tablets day Multi Vitamin And 1 tab po daily Unknown Minerals Tablets History Medications Atorvastatin Calcium 1 by mouth every Yon Christianson, 05/28/2019 - 40mg day DO FACC 05/28/2019 Tablets Aspirin 81 1 by mouth every 90tabs [place] MD 02/13/2019 - 81mg Tablets DR day 03/14/2019 Atorvastatin Calcium take 1 tablet by 90tabs Yon Christianson, 02/13/2019 - 80mg mouth daily DO FACC 05/28/2019 Tablets Immunizations Description No Information Available Vital Signs Date Vital Result Comment 03/12/2019 9:52am Height 73 inches 6'1" Weight 185.00 lb with shoes Heart Rate 67 /min BP Systolic Sitting 122 mmHg Lue BP Diastolic Sitting 70 mmHg Lue BP Systolic Standing 125 mmHg Lue BP Diastolic Standing 73 mmHg Lue BMI (Body Mass Index) 24.4 kg/m2 Ejection Fraction 60-65% Echo 10/30/16 02/18/2019 3:12pm Height 73 inches 6'1" Weight 180.00 lb Heart Rate 84 /min BP Systolic Sitting 122 mmHg Rue, regular cuff BP Diastolic Sitting 68 mmHg Rue, regular cuff BMI (Body Mass Index) 23.7 kg/m2 Results Test Date Facility Test Result H/L Range Note Lipid Profile 05/01/2019 [facility] Triglycerides 52 mg/dL 1 (Trig/Chol/HDL) [address] [place] [address] [phone] Cholesterol 98 mg/dL 2 HDL Cholesterol 36.2 mg/dL 3 LDL Cholesterol 51 mg/dL 4 1 Desirable: <150 Borderline High: 150-199 High: 200-499 Very High: >500 2 Desirable: <200 Borderline High: 200-239 High: >239 3 Low: <40 Desirable: 40-60 High: >60 4 Desirable: <100 Near Optimal: 100-129 Borderline High: 130-159 High: 160-189 Very High: >189 Procedures Date Code Description Status 02/12/2019 10085 Left Heart Cath. Incl S/I Coronaries, Angio S/I V Gram If Completed Done 02/12/2019 26195 EKG, Interpretation Only Completed 02/11/2019 23004 Treadmill Interp/Report Only Completed 02/11/2019 93532 Stress Test Supervsn W/Out I/R Completed Medical Devices Description No Information Available Encounters Type Date Location Provider Dx Diagnosis Office Visit 03/12/2019 [facility] Yon Christianson, I25.119 Athscl heart 10:00a Of [facility] DO [facility] disease of [place] cor art w unsp ang pctrs Z86.711 Personal history of pulmonary embolism E78.5 Hyperlipidemia, unspecified I10 Essential (primary) hypertension Office Visit 02/18/2019 3:00p [facility] Eddy Simons, Z48.812 [place] [facility] [place] [facility] [place]in, FAC, surgical aftcr [facility] following surgery on the circ sys I25.119 Athscl heart disease of [place] cor art w unsp ang pctrs Office Visit 02/13/2019 9:48a [facility] Pancho Mills MD R06.09 Other forms of Assoc,pc dyspnea Hospitalists R94.39 Abnormal result of other cardiovascular function study Office Visit 02/12/2019 10:57a [facility] Shannen Vickers I25.10 Athscl heart [facility] [place] [facility] [employer] disease of [place] coronary artery w/o ang pctrs E78.5 Hyperlipidemia, unspecified Z86.711 Personal history of pulmonary embolism Z86.718 Personal history of other venous thrombosis and embolism Office Visit 02/12/2019 9:48a [facility] [place], I25.10 [facility] disease of Hospitalists [place] coronary artery w/o ang pctrs E78.5 Hyperlipidemia, unspecified I26.99 Other pulmonary embolism without acute cor pulmonale Office Visit 02/11/2019 [facility] Mildred Jose, R94.39 Abnormal result of 9:47a Assoc,pc [employer] other Hospitalists cardiovascular function study Z86.711 Personal history of pulmonary embolism Assessments Date Code Description Provider 03/12/2019 I25.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 Yon Christianson, DO [facility] [place] coronary artery with unspecified angina pectoris 03/12/2019 Z86.711 Personal history of pulmonary Yon Christianson, DO [facility] embolism 03/12/2019 E78.5 Hyperlipidemia, unspecified Yon Christianson, DO [facility] 03/12/2019 I10 Essential (primary) hypertension Yon Christianson, DO [facility] 02/18/2019 Z48.812 Encounter for surgical aftercare Eddy Simons M.D., [facility], [facility] 02/18/2019 I25.119 tory system Eddy Simons M.D., [facility], [facility] 02/13/2019 R06.09 Other forms of dyspnea [place] MD 02/13/2019 R94.39 Abnormal result of other [place] MD cardiovascular function study 02/12/2019 R00.1 Bradycardia, unspecified Davi Duane Sanchez M.D., [facility], [facility] 02/12/2019 I25.10 Atherosclerotic heart disease of Ferderic Levine MD, [facility], [place] coronary artery with [facility] 02/12/2019 I25.10 Atherosclerotic heart disease of Shannen Vickers [employer] [place] coronary artery with 02/12/2019 E78.5 Hyperlipidemia, unspecified Shannen Thuman, [employer] 02/12/2019 Z86.711 Personal history of pulmonary Shannen Thuman, [employer] embolism 02/12/2019 I25.10 Athscl heart disease of [place] P[place]o [place] MD coronary artery w/o ang pctrs 02/12/2019 Z86.718 Personal history of other venous Shannen Thuman, [employer] thrombosis and embolism 02/12/2019 E78.5 Hyperlipidemia, unspecified P[place]o Mills MD 02/12/2019 I26.99 Other pulmonary embolism without [place] MD acute cor pulmonale 02/11/2019 R07.9 Chest pain, unspecified Dorothea Cardenas M.D. 02/11/2019 R94.39 Abnormal result of other Mildred Jose, [employer] cardiovascular function study 02/11/2019 Z86.711 Personal history of pulmonary Mildred Jose, [employer] embolism Plan of Treatment 03/12/2019 - Yon Christianson DO FACCI25.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 [place] coronary artery with unspecified angina pectorisReferral:Maria A Carty MD, Internal MedicineFollow up:Please give patient Dr. Carty's number to call and arrange an appointment Please give patient a record of all lab work [place] [facility] from within last 3 months f/u 6 [id number] Personal history of pulmonary pilvwwdeA11.5 Hyperlipidemia, [id number] Essential (primary) hypertension Functional Status Description No Information Available Mental Status Description No Information Available Referrals Refer to Reason for Referral Status Appt Date Maria A Carty MD please trauma counsellor on plant based diet for CAD Sent 04/29 [address] [facility] [address] [place] [address] [phone] Rolf Philippe MD Created [address] [place] [address] [phone]
--- OUTSIDE RECORDS SUMMARY | 2019-06-05 17:39 | XMS REPORT | Continuity of Care Document ---
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 03/14/2019 Strength tablet by mouth Christianson, DO FACC 81mg daily Chewtabs Nitrostat take as directed 14tabs Z48.1 Eddy Simons, 02/18/2019 0.4mg LEYLA Day, Tablets Sub [facility] Isosorbide 1 by mouth [...] Result H/L Range Note Lipid Profile 05/01/2019 [facility] Triglycerides 52 mg/dL 1 (Trig/Chol/HDL) [address] [place] [address] [phone] Cholesterol 98 mg/dL 2 HDL Cholesterol 36.2 mg/dL 3 LDL Cholesterol 51 mg/dL 4 1 Desirable: <150 Borderline High: 150-199 High: 200-499 Very High: >500 2 Desirable: <200 Borderline High: 200-239 High: >239 3 Low: <40 Desirable: 40-60 High: >60 4 Desirable: <100 Near Optimal: 100-129 Borderline High: 130-159 High: 160-189 Very High: >189 Procedures Date Code Description Status 02/12/2019 10237 Left Heart Cath. Incl S/I Coronaries, Angio S/I V Gram If Completed Done 02/12/2019 48332 EKG, Interpretation Only Completed 02/11/2019 64141 Treadmill Interp/Report Only Completed 02/11/2019 74795 Stress Test Supervsn W/Out I/R Completed Medical Devices Description No Information Available Encounters Type Date Location Provider Dx Diagnosis Office Visit 03/12/2019 [facility] Yon Christianson, I25.119 Athscl heart 10:00a Of [facility] DO [facility] disease of [place] cor art w unsp ang pctrs Z86.711 Personal history of pulmonary embolism E78.5 Hyperlipidemia, unspecified I10 Essential (primary) hypertension Office Visit 02/18/2019 3:00p [facility] Eddy Simons, Z48.812 Encntr for Of [facility] AT [facility] [place] M.DSher, FACC, surgical aftcr [facility]SC[facility] following surgery on the circ sys I25.119 Athscl heart disease of [place] cor art w unsp ang pctrs Office Visit 02/13/2019 9:48a [facility] Pancho Mills MD R06.09 Other forms of Assoc,pc dyspnea Hospitalists R94.39 Abnormal result of other cardiovascular function study Office Visit 02/12/2019 10:57a [facility] Shannen Vickers I25.10 Athscl heart Of [facility] AT [facility] [employer] disease of [place] coronary artery w/o ang pctrs E78.5 Hyperlipidemia, unspecified Z86.711 Personal history of pulmonary embolism Z86.718 Personal history of other venous thrombosis and embolism Office Visit 02/12/2019 9:48a [facility] P[place]o [place] I25.10 [facility] disease of Hospitalists [place] coronary artery w/o ang pctrs E78.5 Hyperlipidemia, unspecified I26.99 Other pulmonary embolism without acute cor pulmonale Office Visit 02/11/2019 [facility] Mildred Jose, R94.39 Abnormal result of 9:47a Assoc,pc [employer] other Hospitalists cardiovascular function study Z86.711 Personal history of pulmonary embolism Assessments Date Code Description Provider 03/12/2019 I25.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 Yon Christianson, DO [facility] [place] coronary artery with unspecified angina pectoris 03/12/2019 Z86.711 Personal history of pulmonary Yon Christianson, DO [facility] embolism 03/12/2019 E78.5 Hyperlipidemia, unspecified Yon Christianson, DO [facility] 03/12/2019 I10 Essential (primary) hypertension Yon Christianson, DO [facility] 02/18/2019 Z48.812 Encounter for surgical aftercare Eddy Simons M.D., [facility], following surgery on the ci [facility] 02/18/2019 I25.119 tory system Eddy Simons M.D., [facility], [facility] 02/13/2019 R06.09 Other forms of dyspnea P[place]o [place] MD 02/13/2019 R94.39 Abnormal result of other [place]o [place] MD cardiovascular function study 02/12/2019 R00.1 Bradycardia, unspecified Davi Duane Sanchez M.D., [facility], [facility] 02/12/2019 I25.10 Atherosclerotic heart disease of Frederic Levine MD, [facility], [place] coronary artery with [facility] 02/12/2019 I25.10 Atherosclerotic heart disease of Shannen Vickers NP [place] coronary artery with 02/12/2019 E78.5 Hyperlipidemia, unspecified Shannen Vickers [employer] 02/12/2019 Z86.711 Personal history of pulmonary Shannen Vickers, [employer] embolism 02/12/2019 I25.10 Athscl heart disease of [place] MD coronary artery w/o ang pctrs 02/12/2019 Z86.718 Personal history of other venous Shannen Vickers NP thrombosis and embolism 02/12/2019 E78.5 Hyperlipidemia, unspecified P[place]o [place] MD 02/12/2019 I26.99 Other pulmonary embolism without [place] MD acute cor pulmonale 02/11/2019 R07.9 Chest pain, unspecified Dorothea Cardenas M.D. 02/11/2019 R94.39 Abnormal result of other Mildred Jose, [employer] cardiovascular function study 02/11/2019 Z86.711 Personal history of pulmonary Mildred Jose, [employer] embolism Plan of Treatment 03/12/2019 - Yon Christianson DO FACCI25.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 [place] coronary artery with unspecified angina pectorisReferral:Maria A Carty MD, Internal MedicineFollow up:Please give patient Dr. Carty's number to call and arrange an appointment Please give patient a record of all lab work from [facility] from within last 3 months f/u 6 [id number] Personal history of pulmonary qfwhhquxE85.5 Hyperlipidemia, cybiazjmxjgC08 Essential (primary) hypertension Functional Status Description No Information Available Mental Status Description No Information Available Referrals Refer to Reason for Referral Status Appt Date Maria A Carty MD please recreational counselor on plant based diet for CAD Sent 04/29 [address] [facility] [address] [place] [address] [phone] Rolf Philippe MD Created [address] [place], [place] [id number] [phone]
--- OUTSIDE RECORDS SUMMARY | 2019-06-05 17:39 | XMS REPORT | Continuity of Care Document ---
:1940 External Reference #:[id number] Author Name Tai Singh M.D. Address [address] [place] [address] Care Team Providers Name Role Phone Valentino Byrd MD - Family Care Team Information Product Marketing Executive Medicine Davi Sanchez MD - Cardiovascular Care Team Information Product Marketing Executive [phone] Disease Problems Active Problems Provider Date Toxic effect of venom Valentino Byrd M.D. Onset: 01/11/2012 Microscopic hematuria Valentino Byrd M.D. 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 Onset: 10/11/2015 Hyperlipidemia Valentino Byrd M.D. Onset: 10/11/2015 H/O: pulmonary embolus Vannesa Gandhi M.D. Onset: 08/22/2016 Coronary arteriosclerosis Tai Singh M.D. Onset: 05/22/2019 Social History Type Date Description Comments Sex Unknown Tobacco Use Start: Unknown Nonsmoker ETOH Use Rare Tobacco Use Start: Unknown Nonsmoker Allergies, Adverse Reactions, Alerts Active Allergies Reaction Severity Comments Date NKDA 01/11/2012 [place] tingling mouth/gi upset 08/22/2016 Latex 03/29/2018 Medications Active Medications SIG Qnty Indications Ordering Provider Date Eliquis 1 twice a day 180tabs Valentino Durant 5mg Tablets MD Mundo Atorvastatin Calcium 1 by mouth Unknown 80mg every day Tablets Aspirin 81 1 by mouth Unknown 81mg Tablets every day Multivitamin Adult 1 by mouth Unknown every day Tablets Metoprolol Tartrate take one tablet Unknown 25mg by mouth twice Tablets a day Probiotic 1 by mouth qod Unknown Capsules Imdur 30mg qd Unknown Prostate 2.4 1 po bid Unknown Capsules Ascorbic Acid 1 po qd Unknown 250mg Tablets Ondansetron HCL 1by mouth every Unknown 4mg 6h as needed Tablets nausea Vitamin B12 1 po q2-3 days Unknown Medications Administered in Office Medication SIG Qnty Indications Ordering Provider Date Injection Rocephrin 250 MG Valentino Byrd M.D. 12/25/2016 Injection Injection Subcutaneous Or Valentino Byrd M.D. 12/25/2016 Intramuscular Injection Immunizations CPT Code Status Date Vaccine Lot # [id number] Given 07/08/2018 High-Dose, Influenza Virus Vacccine-fluzone 65 and older [address] Given 05/31/2017 Influenza Vac, [place] [id number] Given 05/09/2016 Influenza Vac, Quadriv[place], [place] [address] Given 07/02/2015 Pneumococcal Immunization 37937 Given 07/02/2015 Influenza Vac, [place], [place] [address] Given 06/22/2014 Pneumococcal Conjugate Vacc-13 [id number] Given 05/26/2014 DO Not Use Split Influenza Virus Vaccine Vital Signs Date Vital Result Comment 05/22/2019 2:54pm BP Systolic 114 mmHg BP Diastolic 50 mmHg Heart Rate 84 /min Body Temperature 100.8 F Respiratory Rate 16 /min Height 71.5 inches 5'11.50" Weight 179.38 lb BMI (Body Mass Index) 24.7 kg/m2 01/12/2019 3:14pm BP Systolic 140 mmHg BP Diastolic 52 mmHg Heart Rate 96 /min Body Temperature 98.1 F Respiratory Rate 17 /min O2 % BldC Oximetry 98 % Ra Height 71.5 inches 5'11.50" Weight 187.00 lb BMI (Body Mass Index) 25.7 kg/m2 Results Test Date Facility Test Result H/L Range Note Laboratory test 05/22/2019 [facility] PSA (ALL Lab <pending> 0.0-4.0 finding Comp) [place] test 05/22/2019 [facility]ine <pending> finding Kinase(CK) CBC Auto Diff 05/21/2019 [facility] White Blood 4.6 10^3/uL Normal 3.5-10.8 Count Red Blood Count 4.22 10^6/uL Normal 4.18-5.48 Hemoglobin 13.3 g/dL Low 14.0-18.0 Hematocrit 38 % Low 42-52 Mean Corpuscular Volume 91 fL Normal 80-94 Mean Corpuscular Hemoglobin 31 pg Normal 27-31 Mean Corpuscular HGB Conc 35 g/dL Normal 31-36 Red Cell Distribution Width 14 % Normal 10-15 Platelet Count 178 10^3/uL Normal 150-450 Mean Platelet Volume 8.3 fL Normal 7.4-10.4 Abs Neutrophils 4.1 10^3/uL Normal 1.5-7.7 Abs Lymphocytes 0.2 10^3/uL Low 1.0-4.8 Abs Monocytes 0.3 10^3/uL Normal 0-0.8 Abs Eosinophils 0.0 10^3/uL Normal 0-0.6 Abs Basophils 0.0 10^3/uL Normal 0-0.2 Abs Nucleated RBC 0.0 10^3/uL Granulocyte % 88.7 % Lymphocyte % 3.3 % Monocyte % 7.6 % Eosinophil % 0.1 % Basophil % 0.3 % Nucleated Red Blood Cells % 0.0 Inr/Protime 05/21/2019 [facility] Inr 1.56 High 0.82-1.09 1 Laboratory test 05/21/2019 [facility] B-Type Natriuretic 65 pg/mL <=100 finding Peptide BNP Influenza A & B 05/21/2019 [facility] Flu AB Disclaimer (SEE NOTE) 2 Request Influenza A Molecular NEGATIVE Negative 3 Influenza B Molecular NEGATIVE Negative Laboratory test finding 05/21/2019 [facility] Troponin I 0.00 ng/mL <0.04 4 Comp Metabolic Panel 05/21/2019 [facility] Sodium 136 mmol/L Normal 135-145 Potassium 4.1 mmol/L Normal 3.5-5.0 Chloride 106 mmol/L Normal 101-111 Co2 Carbon Dioxide 28 mmol/L Normal 22-32 Anion Gap 2 mmol/L Normal 2-11 Glucose 133 mg/dL High 70-100 Blood Urea Nitrogen 14 mg/dL Normal 6-24 Creatinine 0.96 mg/dL Normal 0.67-1.17 BUN/Creatinine Ratio 14.6 Normal 8-20 Calcium 8.7 mg/dL Normal 8.6-10.3 Total Protein 6.0 g/dL Low 6.4-8.9 Albumin 3.6 g/dL Normal 3.2-5.2 Globulin 2.4 g/dL Normal 2-4 Albumin/Globulin Ratio 1.5 Normal 1-3 Total Bilirubin 0.50 mg/dL Normal 0.2-1.0 Alkaline Phosphatase 90 U/L Normal 34-104 Alt 37 U/L Normal 7-52 Ast 30 U/L Normal 13-39 Egfr Non- 76.2 >60 Egfr 92.1 >60 5 Laboratory test finding 05/21/2019 [facility] Hemoglobin A1c (Glyco 5.6 % Normal 4.0-5.6 6 HGB) Lyme Screen W/ Reflex To WB Negative Negative Laboratory test finding 02/11/2019 [facility] Troponin I 0.02 ng/mL <0.04 7 Comp Metabolic Panel 02/11/2019 [facility] Sodium 142 mmol/L Normal 135-145 Potassium 4.0 mmol/L Normal 3.5-5.0 Chloride 110 mmol/L Normal 101-111 Co2 Carbon Dioxide 25 mmol/L Normal 22-32 Anion Gap 7 mmol/L Normal 2-11 Glucose 115 mg/dL High 70-100 Blood Urea Nitrogen 17 mg/dL Normal 6-24 Creatinine 0.97 mg/dL Normal 0.67-1.17 BUN/Creatinine Ratio 17.5 Normal 8-20 Calcium 9.4 mg/dL Normal 8.6-10.3 Total Protein 6.8 g/dL Normal 6.4-8.9 Albumin 4.1 g/dL Normal 3.2-5.2 Globulin 2.7 g/dL Normal 2-4 Albumin/Globulin Ratio 1.5 Normal 1-3 Total Bilirubin 0.70 mg/dL Normal 0.2-1.0 Alkaline Phosphatase 80 U/L Normal 34-104 Alt 18 U/L Normal 7-52 Ast 19 U/L Normal 13-39 Egfr Non- 75.2 >60 Egfr 91.1 >60 8 CBC Auto Diff 02/11/2019 [facility] White Blood Count 5.1 10^3/uL Normal 3.5- 10.8 Red Blood Count 4.90 10^6/uL Normal 4.18-5.48 Hemoglobin 14.6 g/dL Normal 14.0-18.0 Hematocrit 44 % Normal 42-52 Mean Corpuscular Volume 90 fL Normal 80-94 Mean Corpuscular Hemoglobin 30 pg Normal 27-31 Mean Corpuscular HGB Conc 33 g/dL Normal 31-36 Red Cell Distribution Width 14 % Normal 10-15 Platelet Count 226 10^3/uL Normal 150-450 Mean Platelet Volume 8.4 fL Normal 7.4-10.4 Abs Neutrophils 4.0 10^3/uL Normal 1.5-7.7 Abs Lymphocytes 0.7 10^3/uL Low 1.0-4.8 Abs Monocytes 0.3 10^3/uL Normal 0-0.8 Abs Eosinophils 0.0 10^3/uL Normal 0-0.6 Abs Basophils 0.0 10^3/uL Normal 0-0.2 Abs Nucleated RBC 0.0 10^3/uL Granulocyte % 78.9 % Lymphocyte % 13.6 % Monocyte % 6.4 % Eosinophil % 0.6 % Basophil % 0.5 % Nucleated Red Blood Cells % 0.1 Inr/Protime 02/11/2019 [facility] Inr 1.15 High 0.82-1.09 9 Laboratory test 02/11/2019 [facility] Troponin I 0.03 ng/mL <0.04 10 finding Comprehensive 02/02/2019 [facility]) Sodium 138 mEq/L 134-149 Metabolic Prof Potassium 4.4 mEq/L 3.6-5.5 Chloride 101 mEq/L 94-112 Carbon Dioxide 27 mEq/L 21-32 Glucose 105 mg/dL 70-105 BUN 16 mg/dL 6-26 Creatinine 1.0 mg/dL 0.6-1.4 BUN/Creat Ratio 16.0 CALC 8.0-36.0 Calcium 9.2 mg/dL 8.6-10.2 Total Protein 6.7 g/dL 6.4-8.3 Albumin 4.4 g/dL 3.8-5.5 Globulin 2.3 g/dL 2.0-4.8 A/G Ratio 1.9 CALC 0.6-2.3 Alk. Phosphatase 82 U/L 22-95 Alt (SGPT) 20 U/L 7-35 Ast (Sgot) 16 U/L 5-34 Total Bilirubin 0.8 mg/dL 0.2-1.3 GFR Non- >60 ml/min/1.73m^ >=60 GFR >60 ml/min/1.73m^ >=60 Lipid Profile 02/02/2019 [facility]) Cholesterol 201 mg/dL High 120-200 Triglycerides 56 mg/dL 30-200 HDL Cholesterol 45 mg/dL 30-70 LDL (Calculated) 145 CALC High 0-129 VLDL Cholesterol 11 mg/dL 0-50 HDL Risk Factor 4.5 CALC High 0.0-4.4 Laboratory test 02/02/2019 [facility]) PSA 14.8 ng/mL High 0.0- 4.0 11 finding Laboratory test 02/02/2019 [facility] C Reactive 1.75 mg/L Normal <8.01 12 finding Protein CBC Electronic 02/02/2019 [facility] WBC 4.33 4.0-10.0 ([facility]) (607)- - RBC 4.97 3.93-6.0 Hemoglobin (Fma/CMC/CTX) 15.1 g/dL 12.0-17.0 Hematocrit (Fma/CMC/CTX) 44.9 % 35.0-50.0 Mean Corpuscular Vol 90.3 fL 80-95 Mean Corpuscular Hemoglobin 30.4 pg 25.6-32.2 Mean Corpuscular Hemo Concen 33.6 g/dL 32.2-36.0 Platelets 235 10^3/ul 163-400 RDW-CV 13.0 11.6-14.4 Mean Platelet Volume 10.0 fL 8.0-12.4 Absolute Neutrophils BLD 2.75 1.56-6.13 Absolute Lymphocytes 1.09 Low 1.18-3.74 Absolute Monocytes BLD Auto 0.37 0.24-0.82 Absolute Eos Blood 0.10 0.04-0.54 Absolute Basophils 0.02 0.01-0.08 Neutrophil % 63.5 % 34.0-70.0 Lymph% 2502 % High 20.0-52.0 Monocytes % 8.5 % 5.0-12.0 Eos % 2.3 % 0.7-7.0 Basophil% 0.5 % 0-1.2 Laboratory test finding 01/12/2019 [facility]) BUN 17 mg/dL 6- 26 Creatinine 1.0 mg/dL 0.6-1.4 1 Standard intensity warfarin therapeutic range: 2.0-3.0 High intensity warfarin therapeutic range: 2.5-3.5 2 Suboptimal collection technique may reduce sensitivity of test. Refer to the [facility] Test Catalog for collection information: [email or web address] As with all diagnostic procedures, the laboratory results obtained should be used in conjunction with other clinical information available to the physician, including confirmation by another method, as applicable. 3 Clay Washer: [id number] 4 Troponin-I testing on Plasma Separator Tubes (PST) has a known false positive rate of 0.20-0.40%. All positive troponins reflex immediately to secondary confirmatory testing. Using the [employer] DxI 800 Access Immunoassay systems, the 99th percentile upper reference limit was demonstrated to be < 0.03 ng/mL. 5 Because ethnic data is not always readily available, this report includes an eGFR for both -Americans and non- Americans. The National Kidney Disease Education Program (NKDEP) does not endorse the use of the MDRD equation for patients that are not between the ages of 18 and 70, are , have extremes of body size, muscle mass, or nutritional status, or are non- or non-. According to the National Kidney Foundation, irrespective of diagnosis, the stage of the disease is based on the level of kidney function: Stage Description GFR(mL/min/1.73 m(2)) 1 Kidney damage with normal or decreased GFR 90 2 Kidney damage with mild decrease in GFR 60-89 3 Moderate decrease in GFR 30-59 4 Severe decrease in GFR 15-29 5 Kidney failure <15 (or dialysis) 6 Therapeutic target for the treatment of diabetes mellitus patients is <7% HBA1C, and in selective patients <6.0%. Please refer to [place] [employer] Association diabetic care guidelines for further information. 7 Troponin-I testing on Plasma Separator Tubes (PST) has a known false positive rate of 0.20-0.40%. All positive troponins reflex immediately to secondary confirmatory testing. Using the [employer] DxI 800 Access Immunoassay systems, the 99th percentile upper reference limit was demonstrated to be < 0.03 ng/mL. 8 Because ethnic data is not always readily available, this report includes an eGFR for both -Americans and non- Americans. The National Kidney Disease Education Program (NKDEP) does not endorse the use of the MDRD equation for patients that are not between the ages of 18 and 70, are , have extremes of body size, muscle mass, or nutritional status, or are non- or non-. According to the National Kidney Foundation, irrespective of diagnosis, the stage of the disease is based on the level of kidney function: Stage Description GFR(mL/min/1.73 m(2)) 1 Kidney damage with normal or decreased GFR 90 2 Kidney damage with mild decrease in GFR 60-89 3 Moderate decrease in GFR 30-59 4 Severe decrease in GFR 15-29 5 Kidney failure <15 (or dialysis) 9 Standard intensity warfarin therapeutic range: 2.0-3.0 High intensity warfarin therapeutic range: 2.5-3.5 10 Troponin-I testing on Plasma Separator Tubes (PST) has a known false positive rate of 0.20-0.40%. All positive troponins reflex immediately to secondary confirmatory testing. Using the [employer] Access Immunoassay systems, the 99th percentile upper reference limit was demonstrated to be < 0.03 ng/mL. 11 consistent w/ previous results 12 1 [facility], [facility]–1983 [id number] Procedures Date Code Description Status 05/22/2019 41763 Electrocardiogram Complete Completed 08/05/2010 [id number] Colonoscopy Completed Medical Devices Description No Information Available Encounters Type Date Location Provider Dx Diagnosis Office Visit 01/12/2019 Main Office Valentino Byrd R07.9 Chest pain, 3:00p M.D. unspecified Z79.01 intermediate (current) use of anticoagulants Assessments Date Code Description Provider 05/22/2019 I25.10 Atherosclerotic heart disease of [place] Tai Singh M.D. coronary artery without angina pectoris 05/22/2019 N40.0 Benign prostatic hyperplasia without lower Tai Singh M.D. urinary tract symptoms 05/22/2019 R53.81 Other malaise Tai Singh M.D. 02/02/2019 R07.9 Chest pain, unspecified Valentino Byrd M.D. 02/02/2019 Z12.5 Encounter for screening for malignant Valentino Byrd M.D. neoplasm of prostate 01/12/2019 R07.9 Chest pain, unspecified Valentino Byrd M.D. 01/12/2019 Z79.01 intermediate (current) use of anticoagulants Valentino Byrd M.D. Plan of Treatment 05/22/2019 - Tai Singh M.D.I25.10 Atherosclerotic heart disease of [place] coronary artery without angina pectorisComments:EKG showed normal sinus rhythm, normal tracing, troponin was measured at 0.06-negativeI called and discussed the case with Dr. Christianson who again felt that the patient likely had a vasovagal episode yesterday. We discussed obtaining a 24-hour Holter monitor to rule out cardiac arrhythmia and the patientwill see Dr. Christianson in followup in 2 weeks. I advised him that if he had any recurrent symptoms of chest pain shortness of breath fainting or dizziness that he should return immediately to the emergency room and call 911 for transport to the emergency roomN40.0 Benign prostatic hyperplasia without lower urinary tract symptomsComments:The patient was advised to have yearly digital rectal exams, and a yearly psaR53.81 Other malaiseComments:Patient would like a more extensive evaluation for tickborne illnessAllFollow up:return to office [address] Byrd Functional Status Description No Information Available Mental Status Description No Information Available Referrals Refer to Reason for Referral Status Appt Date Davi Sanchez MD exercise nuclear stress test-sob, chest pain on Scheduled 05/2019 exertion. Office note, labs and triage faxed. [place] [phone]
[2019-06-05 18:17] LABS: ABS Lymphocytes 0.8 10^3/ul (1.0-4.8); ABS Monocytes 0.5 10^3/ul (0-0.8); Hematocrit 36 % (42-52); Hemoglobin 12.2 g/dL (14.0-18.0); Lymphocyte % 9.4 %; Mean Corpuscular HGB Conc 34 g/dL (31-36); Mean Corpuscular Hemoglobin 30 pg (27-31); Mean Corpuscular Volume 89 fL (80-94); Mean Platelet Volume 8.3 fL (7.4-10.4); Nucleated Red Blood Cells % 0.1; Platelet Count 189 10^3/uL (150-450); Red Blood Count 4.01 10^6 /uL (4.18-5.48); Red Cell Distribution Width 14 % (10-15); White Blood Count 8.3 10^3/uL (3.5-10.8)
[2019-06-05 18:26] LABS: Albumin 3.2 g/dL (3.2-5.2); Albumin/Globulin Ratio 1.3 (1-3); BUN/Creatinine Ratio 16.3 (8-20); Calcium 8.3 mg/dL (8.6-10.3); EGFR Non-African American 74.4 (>60); Globulin 2.5 g/dL (2-4); Potassium 4.3 mmol/L (3.5-5.0); Total Protein 5.7 g/dL (6.4-8.9)
[2019-06-05 19:04] LABS: TSH (Thyroid Stimulating Horm) 0.35 mcIU/mL (0.34-5.60)
[2019-06-05 19:41] VITALS: BP 104/52
== END 2019-06-05 19:37 | disposition home or self-care (01) ==
LOC: ED 15:57
DX: M79.10 Myalgia, unspecified site (principal); T46.6X5A Adverse effect of antihyperlipidemic and antiarteriosclerotic drugs, initial encounter; Y92.9 Unspecified place or not applicable; I25.10 Atherosclerotic heart disease of native coronary artery without angina pectoris; N40.0 Benign prostatic hyperplasia without lower urinary tract symptoms; Z86.711 Personal history of pulmonary embolism; Z88.8 Allergy status to other drugs, medicaments and biological substances
CPT/HCPCS: 36415; 80053; 82306; 82550; 84443; 85025; 99282

== ENCOUNTER 2022-03-06 12:45 | Inpatient (IN) ==
[2022-03-06 13:34] LABS: ABS Lymphocytes 0.3 10^3/ul (1.0-4.8); ABS Monocytes 0.7 10^3/ul (0-0.8); ABS Neutrophils 10.7 10^3/ul (1.5-7.7); Eosinophil % 0.2 %; Hematocrit 38 % (42-52); Hemoglobin 12.6 g/dL (14.0-18.0); Lymphocyte % 2.2 %; Mean Corpuscular HGB Conc 34 g/dL (31-36); Mean Corpuscular Hemoglobin 31 pg (27-31); Mean Corpuscular Volume 92 fL (80-94); Platelet Count 243 10^3/uL (150-450); Red Blood Count 4.07 10^6 /uL (4.18-5.48); Red Cell Distribution Width 14 % (10-15); White Blood Count 11.7 10^3/uL (3.5-10.8)
[2022-03-06 13:42] LABS: Albumin 3.5 g/dL (3.2-5.2); Calcium 8.8 mg/dL (8.6-10.3); Magnesium 2.7 mg/dL (1.9-2.7); Potassium 4.1 mmol/L (3.5-5.0); Total Bilirubin 7.2 mg/dL (0.2-1.0)
[2022-03-06 13:48] LABS: Albumin/Globulin Ratio 1.3 (1-3); Globulin 2.6 g/dL (2-4); Total Protein 6.1 g/dL (6.4-8.9); eGFR CKD-EPI 46.7 (>60)
[2022-03-06] MEDS ORDERED: Piperacillin/Tazobac 3.375 GM BAG ONE (17:30)
[2022-03-06] MEDS ORDERED: Prochlorperazine 5 mg/ml 2 ml VIAL (10 mg) IV PRN (17:38)
[2022-03-06] MEDS ORDERED: Morphine 2 MG/ML SYRINGE IV PRN (17:38)
[2022-03-06] MEDS ORDERED: NS 0.9% 1000 ml BAG 1,000 ML IV SCH (17:45)
[2022-03-06] MEDS ORDERED: Zosyn per Pharmacy NOTE FOLLOW UP SCH (18:00)
[2022-03-06] MEDS ORDERED: Ondansetron ODT 4 mg TAB 4 MG TAB PO PRN (18:55)
[2022-03-06] MEDS: ZOSYN 3.375 GM Q8H per EXTENDED INFUSION IV SCH (23:10)
[2022-03-07] MEDS: oxyCODONE/Acetamin 5/325 mg TAB PO PRN ×2 (03:57→21:27)
[2022-03-07 05:56] LABS: ABS Lymphocytes 0.4 10^3/ul (1.0-4.8); ABS Monocytes 0.6 10^3/ul (0-0.8); ABS Neutrophils 8.9 10^3/ul (1.5-7.7); Eosinophil % 0.5 %; Hematocrit 35 % (42-52); Hemoglobin 11.5 g/dL (14.0-18.0); Lymphocyte % 4.3 %; Mean Corpuscular HGB Conc 33 g/dL (31-36); Mean Corpuscular Hemoglobin 30 pg (27-31); Mean Corpuscular Volume 92 fL (80-94); Mean Platelet Volume 8.5 fL (7.4-10.4); Platelet Count 197 10^3/uL (150-450); Red Cell Distribution Width 14 % (10-15); White Blood Count 10.1 10^3/uL (3.5-10.8)
[2022-03-07 06:00] LABS: INR 1.29 (0.89-1.11)
[2022-03-07 06:21] LABS: Albumin 3.2 g/dL (3.2-5.2); Calcium 8.8 mg/dL (8.6-10.3); Globulin 2.1 g/dL (2-4); Potassium 4.9 mmol/L (3.5-5.0); Total Protein 5.3 g/dL (6.4-8.9); eGFR CKD-EPI 44.6 (>60)
[2022-03-07 06:22] LABS: Albumin/Globulin Ratio 1.5 (1-3); Total Bilirubin 7.2 mg/dL (0.2-1.0)
[2022-03-07] MEDS: ZOSYN 3.375 GM Q8H per EXTENDED INFUSION IV SCH ×3 (10:38→23:26)
[2022-03-07] MEDS: Isosorbide Mononit ER 60mg TAB PO SCH (10:38)
[2022-03-07] MEDS: Multivitamins/Minerals TAB PO SCH (10:39)
[2022-03-07] MEDS: NALOXEGOL 12.5 MG PO SCH (15:18)
[2022-03-07 15:44] LABS: Body Fluid WBC 65 /mcL
[2022-03-07 16:05] LABS: Body Fluid Mono 40 %; Body Fluid Other Cells 5; Body Fluid Total Cells Counted 200
[2022-03-07 16:06] LABS: Body Fluid Appearance Clear; Body Fluid Color Yellow; Body Fluid Source Peritonial Fluid
[2022-03-08 06:09] LABS: ABS Lymphocytes 0.5 10^3/ul (1.0-4.8); ABS Monocytes 0.7 10^3/ul (0-0.8); ABS Neutrophils 8.8 10^3/ul (1.5-7.7); Eosinophil % 0.3 %; Hematocrit 34 % (42-52); Hemoglobin 11.8 g/dL (14.0-18.0); Lymphocyte % 5.2 %; Mean Corpuscular HGB Conc 35 g/dL (31-36); Mean Corpuscular Hemoglobin 32 pg (27-31); Mean Corpuscular Volume 93 fL (80-94); Platelet Count 196 10^3/uL (150-450); Red Blood Count 3.66 10^6 /uL (4.18-5.48); Red Cell Distribution Width 14 % (10-15); White Blood Count 10.1 10^3/uL (3.5-10.8)
[2022-03-08] MEDS: ZOSYN 3.375 GM Q8H per EXTENDED INFUSION IV SCH (06:15)
[2022-03-08 06:26] LABS: Albumin 2.9 g/dL (3.2-5.2); Albumin/Globulin Ratio 1.5 (1-3); Calcium 8.4 mg/dL (8.6-10.3); Potassium 4.7 mmol/L (3.5-5.0); Total Bilirubin 8.6 mg/dL (0.2-1.0); Total Protein 4.9 g/dL (6.4-8.9); eGFR CKD-EPI 43.9 (>60)
[2022-03-08] MEDS: Isosorbide Mononit ER 60mg TAB PO SCH (10:26)
[2022-03-08] MEDS: Multivitamins/Minerals TAB PO SCH (10:26)
[2022-03-08 12:31] VITALS: BP 100/52
[2022-03-08] MEDS: NALOXEGOL 12.5 MG PO SCH (12:34)
[2022-03-08 14:25] LABS: Glucose, BF 85 mg/dL
[2022-03-08 14:39] LABS: Fluid Type, Protein, Total ASCITES; Total Protein, BF 2.9 g/dL
[2022-03-08 14:48] LABS: Fluid Type, Albumin ASCITES; Lactate Dehydrogenase, BF 175 U/L
[2022-04-04 17:28] LABS: Tissue ID CN22-994-B
== END 2022-03-08 15:57 | disposition home health service (06) | DRG 442 ==
LOC: CHOA 12:45 → MEDTELE 18:51
PROVIDERS: ADMIT Internal Medicine Hematology & Oncology; ATTEND Internal Medicine Medical Oncology